=== PATIENT | female | born 1950 | race Caucasian/White ===

== ENCOUNTER → 2016-09-24 | Outpatient (CLI) | payer BC | END | disposition home or self-care (01) | LOC: LABWHC1 08:20 | PROVIDERS: ATTEND Physician Assistant Medical | DX: E87.6 Hypokalemia (principal) | CPT/HCPCS: 36415; 84132 ==

== ENCOUNTER → 2018-02-22 | Outpatient (CLI) | payer MEDICARE, BC ==
[2018-02-22 09:15] VITALS: BP 167/87; PULSE 71; TEMP 96.8; BMI 32.3
--- NOTE | 2018-02-22 09:51 | P.HPOB ---
History of Present Illness H&P Date: 02/22/18 Chief Complaint: The patient is here for her routine gynecologic exam and mammogram. This is a 67-year-old with an LMP of 1983. The patient status post vaginal hysterectomy and later BSO for benign reasons. The patient is without gynecologic complaints. She has been seen for mixed urinary incontinence by Dr. Ortiz, the urologist. She states he is planning on doing a sling procedure in the near future. Review of Systems She is gained 5 pounds over the last year. She denies respiratory, cardiac and G.I. problems. She denies maltreatment or problems with falling. : she has been having problems with stress and urge incontinence. She is seeing Dr. Ortiz for this. Past Medical History Past Medical History: GERD/Reflux, Hypertension, Thyroid Disorder (Hypothyroid) Additional Past Medical History / Comment(s): Seasonal allergies, osteopenia and chronic back problems with degenerative disc disease. 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 She is status post vaginal hysterectomy and later BSO for benign reasons. History of Any Multi-Drug Resistant Organisms: None Reported Past Surgical History: Breast Surgery (Left breast biopsy), Cholecystectomy, Hysterectomy (Vaginal hysterectomy 1979 and BSO 2005), Orthopedic Surgery ( Elbow surgery) Additional Past Surgical History / Comment(s): HIATAL HERNIA REPAIR, KIDNEY SURGERY,CERVICAL FUSION,RIGHT ELBOW. Colonoscopy 2010. Past Anesthesia/Blood Transfusion Reactions: No Reported Reaction Past Psychological History: No Psychological Hx Reported Smoking Status: Former smoker (Quick age 29) Past Alcohol Use History: Occasional (0 to 3 per week.) Additional Past Alcohol Use History / Comment(s): STARTED SMOKING AT AGE 15 QUIT IN 1984 SMOKED 1PPD Past Drug Use History: None Reported Additional History: She has been since 1999 and is retired. - Past Family History Sister(s) Family Medical History: Deep Vein Thrombosis (DVT) Additional Family Medical History / Comment(s): Peripheral vascular disease. Daughter(s) Family Medical History: Cancer (Lung cancer) Additional Family Medical History / Comment(s): LUNG CANCER Father Family Medical History: Cancer (Renal cancer) Additional Family Medical History / Comment(s): KIDNEY CANCER Brother(s) Family Medical History: Diabetes Mellitus Medications and Allergies Home Medications Medication Instructions Recorded Confirmed Type Esomeprazole Magnesium 40 mg PO DAILY 12/03/15 02/22/18 History Hydrochlorothiazide [Hydrodiuril] 25 mg PO DAILY 12/03/15 02/22/18 History Levothyroxine Sodium [Synthroid] 112 mcg PO DAILY 12/03/15 02/22/18 History Cyclobenzaprine [Flexeril] 10 mg PO PRN 02/22/18 History Fesoterodine Fumarate [Toviaz] 4 mg PO DAILY 02/22/18 02/22/18 History Ranitidine HCl [Zantac] 150 mg PO HS 02/22/18 02/22/18 History Allergies Allergy/AdvReac Type Severity Reaction Status Date / Time Iodine and Iodide Containing Allergy Rash/Hives Verified 02/22/18 09:09 Produc Exam Vital Signs Temp Pulse BP 02/22/18 09:09 96.8 F L 71 167/87 Intake and Output 02/21/18 02/22/18 02/22/18 22:59 06:59 14:59 Other: Weight 80.286 kg Height 5'2", weight 177 pounds, BMI 32.4. This is a well-developed well-nourished white female who is alert and oriented times 3 in no acute distress. HEENT: Within normal limits. NECK: Supple without mass or thyromegaly. CHEST AND LUNGS: Clear to auscultation. HEART: Regular rate and rhythm. BREASTS: Are without mass or discharge. There is central nipple inversion on the right side which she has had for several years. The left nipple is not inverted. AXILLARY EXAM: Negative for adenopathy. BACK: Negative for CVA tenderness. ABDOMEN: Soft, nontender, without palpable masses. PELVIC EXAM: External genitalia appears normal with mild atrophy. Vagina appears normal with mild atrophy. There is no evidence of prolapse. There is mild urethral mobility with cough and Valsalva. No urinary leakage was demonstrated. Bimanual examination is negative for mass or tenderness. RECTAL EXAM: Rectovaginal exam is negative for mass or tenderness and is negative for occult blood. EXTREMITIES: Nontender. IMPRESSION: 1. 67-year-old menopausal female status post vaginal hysterectomy and later BSO done for benign reasons, with normal gynecologic exam. 2. History of osteopenia. 3. Mixed urinary incontinence with mild urethral mobility. The patient states she is scheduled for a sling procedure by Dr. Ortiz. PLAN: 1. Pap smears have been discontinued. 2. Self breast awareness was discussed with the patient. 3. Screening mammogram will be done today. 4. Osteoporosis prevention was discussed. She will do a bone density test today. 5. She did receive a flu shot this fall. 6. She is scheduled for colonoscopy on 03/07/2018. 7. She will return in one year.
--- NOTE | 2018-02-23 10:12 | MM ---
Reason for exam: screening (asymptomatic). Last mammogram was performed 1 year ago. History: Patient is postmenopausal. 2 benign excisional biopsies of the left breast. Took estrogen for 1 year 2 months. Physical Findings: A clinical breast exam by your physician is recommended on an annual basis and results should be correlated with mammographic findings. MG 3D Screening Mammo W/Cad Bilateral CC and MLO view(s) were taken. Prior study comparison: February 08, 2017, bilateral MG 3d screening mammo w/cad. December 16, 2015, bilateral MG screening mammo w CAD. The breast tissue is heterogeneously dense. This may lower the sensitivity of mammography. There are benign appearing round vascular calcifications bilaterally. There is chronic nodularity in the left breast. Asymmetric breast tissue in the left breast is stable. There is no discrete abnormality. ASSESSMENT: Benign, BI-RAD 2 RECOMMENDATION: Routine screening mammogram of both breasts in 1 year.
--- NOTE | 2018-02-27 12:18 | BD ---
EXAMINATION TYPE: Axial Bone Density DATE OF EXAM: 02/22/2018 COMPARISON: Prior exam 02/18/2016 CLINICAL HISTORY: Postmenopausal without hormonal replacement therapy, Z 78.0 Height: 62 Weight: 175.1 FRAX RISK QUESTIONS: Alcohol (3 or more units per day): no Family History (Parent hip fracture): no Glucocorticoids (More than 3mos): no (Ex: prednisone, prednisolone, methylprednisolone, dexamethasone, and hydrocortisone). History of Fracture in Adulthood: Secondary Osteoporosis: 1. Type 1 Diabetes: no 2. Hyperthyroidism: no 3. Menopause before 45: no 4. Malnutrition: no 5. Chronic liver disease: no Rheumatoid Arthritis: no Current Tobacco Use: no RISK FACTORS HISTORY OF: Active: yes Diet low in dairy products/other sources of calcium: no Postmenopausal woman: age 50 Lost more than 2 inches in height since high school: no MEDICATIONS: hydrochlorothiazide, zantac, trozata Thyroid Medications: levothyroxine Additional History: EXAM MEASUREMENTS: Bone mineral densitometry was performed using the [employer] System. Bone mineral density as measured about the Lumbar spine is: ----- L1-L4(G/cm2): 0.989 T Score Values are as follows: ----- L2: -1.7 ----- L3: -1.6 ----- L4: -1.3 ----- L1-L4: -1.6 Bone mineral density has: increased 4.3 % since study of: 02.18.2016 Bone mineral density about the R hip (g/cm2): 0.789 Bone mineral density about the L hip (g/cm2): 0.831 T Score values are as follows: -----R Neck: -1.8 -----L Neck: -1.5 -----R Total: -0.6 -----L Total: -0.8 Bone mineral density has: increased 0.1 % since study of: 02.18.2016 IMPRESSION: Osteopenia (T Score between -2.5 and -1). There is slightly increased risk of fracture and the patient may be considered for treatment. Re-Screen 2-5 years. NOTE: T-SCORE=SD OF THE YOUNG ADULT MEAN.
== END ==
LOC: WWCWWP 08:16
PROVIDERS: ATTEND Obstetrics & Gynecology
DX: Z12.31 Encounter for screening mammogram for malignant neoplasm of breast (principal); M85.80 Other specified disorders of bone density and structure, unspecified site; Z78.0 Asymptomatic menopausal state
CPT/HCPCS: 77063; 77067; 77080

== ENCOUNTER 2018-03-17 10:23 | Day surgery (SDC) | payer MEDICARE, BC ==
[2018-03-15 14:50] VITALS: BMI 31.8
[~2018-03-17 10:23] MED LIST: LACTATED RINGERS 1,000 ML IV SCH
[2018-03-17 10:42] VITALS: TEMP 97.8
[2018-03-17] MEDS ORDERED: LACTATED RINGERS 1,000 ML IV ONE (10:42)
[2018-03-17] MEDS ORDERED: LIDOCAINE 1% 20 ML VIAL (10MG/ML) FOR IV START INTRADERMA ONE (10:42)
[2018-03-17] MEDS ORDERED: PROPOFOL 10 MG/ML 20 ML VIAL IV ONE (12:07)
[2018-03-17] MEDS ORDERED: LIDOCAINE 1% INJ 10MG/ML (20 ML MDV) ONE (12:07)
--- NOTE | 2018-03-17 12:29 | P.PCN ---
Date of Procedure: 03/17/18 Procedure(s) Performed: BRIEF HISTORY: Patient is a 67-year-old pleasant white female, scheduled for an elective colonoscopy as a part of the [place] she of prior history of colon polyps. Last upper endoscopy was 5 years ago. PROCEDURE PERFORMED: Colonoscopy. PREOPERATIVE DIAGNOSIS: History of colon polyps. IV sedation per Anesthesia. PROCEDURE: After informed consent was obtained, the patient, was brought into the endoscopy unit. IV sedation was administered by Anesthesia under continuous monitoring. Digital rectal examination was normal. Initially the Olympus CF- 160 flexible video colonoscope was then inserted in the rectum, gradually advanced into the cecum without any difficulty. Careful examination was performed as the scope was gradually being withdrawn. Ileocecal valve and the appendiceal orifice were visualized and appeared normal. Prep was fair.. Mucosa of the cecum, ascending colon, transverse colon, descending colon, sigmoid colon, and rectum appeared normal. Sigmoid diverticulosis seen. Retroflexion was performed in the rectum and no lesions were seen. The patient tolerated the procedure well. IMPRESSION: Normal-appearing colon from rectum to cecum no evidence of colorectal neoplasia Scattered sigmoid diverticulosis . RECOMMENDATIONS: Findings of this examination were discussed with the patient as well as her family. She was advised to have a repeat surveillance colonoscopy in 5 years from now because of the prior history of colon polyps..
[2018-03-17 12:31] VITALS: RESP 16
[2018-03-17 12:51] VITALS: BP 157/81; PULSE 68
== END 2018-03-17 13:04 | disposition home or self-care (01) ==
LOC: ORWHC2ENDO 10:23
PROVIDERS: ATTEND Internal Medicine Gastroenterology
DX: Z12.11 Encounter for screening for malignant neoplasm of colon (principal); K57.30 Diverticulosis of large intestine without perforation or abscess without bleeding; Z86.010 Personal history of colon polyps; I10 Essential (primary) hypertension; E07.9 Disorder of thyroid, unspecified; K21.9 Gastro-esophageal reflux disease without esophagitis; Z79.899 Other long term (current) drug therapy; Z79.890 Hormone replacement therapy; Z91.09 Other allergy status, other than to drugs and biological substances
CPT/HCPCS: J2001; J2704; G0105; 45378

== ENCOUNTER → 2018-04-19 | Outpatient (CLI) | payer MEDICARE, BC ==
[2018-04-19 10:21] LABS: Basophils # (A) 0.1 k/uL (0-0.2); Basophils % (A) 1 %; Eosinophils # (A) 0.2 k/uL (0-0.7); Eosinophils % (A) 3 %; HCT 43.3 % (34.0-46.0); HGB 13.9 gm/dL (11.4-16.0); Lymphocytes # (A) 1.6 k/uL (1.0-4.8); Lymphocytes % (A) 22 %; MCH 29.2 pg (25.0-35.0); MCHC 32.1 g/dL (31.0-37.0); MCV 91.2 fL (80.0-100.0); Mean Platelet Volume 6.2; Monocytes # (A) 0.4 k/uL (0-1.0); Monocytes % (A) 6 %; Neutrophils # (A) 4.7 k/uL (1.3-7.7); Neutrophils % (A) 66 %; Platelet Count 213 k/uL (150-450); RBC 4.75 m/uL (3.80-5.40); RDW 13.9 % (11.5-15.5); WBC 7.2 k/uL (3.8-10.6)
[2018-04-19 10:23] LABS: Calcium 9.3 mg/dL (8.4-10.2); Potassium 3.8 mmol/L (3.5-5.1)
[2018-04-19 10:45] LABS: Appearance,Urine Clear (Clear); Bilirubin,Urine Negative (Negative); Blood,Urine Negative (Negative); Color,Urine Light Yellow; Glucose,Urine (UA) Negative (Negative); Ketones,Urine Negative (Negative); Leukocyte Esterase,Urine Negative (Negative); Nitrite,Urine Negative (Negative); Protein,Urine Negative (Negative); Specific Gravity,Urine 1.005 (1.001-1.035); Urobilinogen,Urine <2.0 mg/dL (<2.0)
== END | disposition home or self-care (01) ==
LOC: LABPAT 09:30
PROVIDERS: ATTEND Urology
DX: Z01.812 Encounter for preprocedural laboratory examination (principal); N39.3 Stress incontinence (female) (male); R35.0 Frequency of micturition
CPT/HCPCS: 80048; 81003; 85025; 87086

== ENCOUNTER 2018-04-26 05:35 | Day surgery (SDC) | payer MEDICARE, BC ==
[2018-04-20 12:47] VITALS: BMI 32.9
--- NOTE | 2018-04-25 18:39 | P.GSHP ---
History of Present Illness H&P Date: 04/25/18 The patiet is 67. SHe has mixed urinary incontinence with a prominent ekaterina component Her LPP were 85 cm h2o SHe wants repair. Anticholinergic have helped the urgency but the ekaterina remains SHe comes for a pvs with autologous fascia Alternatives and risks were discussed She comes for this procedure - Constitutional Constitutional: Denies chills, Denies fever - EENT Eyes: denies blurred vision, denies pain Ears, nose, mouth and throat: Denies headache, Denies sore throat - Cardiovascular Cardiovascular: Denies chest pain, Denies shortness of breath - Respiratory Respiratory: Denies cough, Denies 7 - Gastrointestinal Gastrointestinal: Denies abdominal pain, Denies diarrhea, Denies nausea, Denies vomiting - Genitourinary (Female) Genitourinary: Denies dysuria, Denies hematuria - Genitourinary (Male) Genitourinary: Denies dysuria, Denies hematuria - Musculoskeletal Musculoskeletal: Denies myalgias - Integumentary Integumentary: Denies pruritus, Denies rash - Neurological Neurological: Denies numbness, Denies weakness - Psychiatric Psychiatric: Denies anxiety, Denies depression - Endocrine Endocrine: Denies fatigue, Denies weight change Past Medical History Past Medical History: Fibromyalgia, GERD/Reflux, Musculoskeletal Disorder, Thyroid Disorder Additional Past Medical History / Comment(s): ankle swelling, herniated disc, urinary incontinence History of Any Multi-Drug Resistant Organisms: None Reported Past Surgical History: Cholecystectomy, Hysterectomy, Orthopedic Surgery Additional Past Surgical History / Comment(s): HIATAL HERNIA REPAIR, KIDNEY SURGERY,CERVICAL FUSION,RIGHT ELBOW, surgery for blocked ureter, epidural pain procedures Past Anesthesia/Blood Transfusion Reactions: No Reported Reaction Smoking Status: Former smoker - Past Family History Sister(s) Family Medical History: Deep Vein Thrombosis (DVT) Daughter(s) Family Medical History: Cancer Additional Family Medical History / Comment(s): LUNG CANCER Father Family Medical History: Cancer Additional Family Medical History / Comment(s): KIDNEY CANCER Medications and Allergies Home Medications Medication Instructions Recorded Confirmed Type Hydrochlorothiazide [Hydrodiuril] 25 mg PO DAILY 12/03/15 04/25/18 History Levothyroxine Sodium [Synthroid] 112 mcg PO DAILY 12/03/15 04/25/18 History Ranitidine HCl [Zantac] 150 mg PO HS 02/22/18 04/25/18 History Cetirizine HCl [Zyrtec] 10 mg PO DAILY 03/15/18 04/25/18 History Omeprazole 20 mg PO DAILY 04/25/18 04/25/18 History Allergies Allergy/AdvReac Type Severity Reaction Status Date / Time Iodine and Iodide Containing Allergy Rash/Hives Verified 04/20/18 11:21 Produc Surgical - Exam - General well developed, well nourished, no distress - Eyes PERRL - ENT no hearing loss - Neck no masses - Respiratory normal expansion, normal respiratory effort - Cardiovascular Rhythm: regular - Abdomen Abdomen: soft, non tender - Genitourinary positive urethral mobility, ekaterina normal external genitalia - Integumentary no rash, no growths - Neurologic normal coordination, normal sensation - Musculoskeletal normal gait, normal posture - Psychiatric oriented to time, oriented to person, oriented to place, speech is normal, memory intact Assessment and Plan Assessment: Impression: ekaterina Plan: PVS with cysto
[~2018-04-26 05:35] MED LIST changes: -LACTATED RINGERS 1,000 ML IV SCH; +ceFAZolin 1,000 MG in DEXTROSE/WATER 1 50ML.BAG IVPB ONE
[2018-04-26] MEDS ORDERED: LIDOCAINE 1% 20 ML VIAL (10MG/ML) FOR IV START INTRADERMA PRN (05:38)
[2018-04-26] MEDS ORDERED: MIDAZOLAM 2 MG/2 ML VIAL IV PRN (05:38)
[2018-04-26] MEDS ORDERED: ONDANSETRON 4 MG/2 ML VIAL IVP ONE ×2 (05:38→09:07)
[2018-04-26] MEDS ORDERED: SCOPOLAMINE 1.5MG/72HR PATCH TRANSDERM ONE (05:38)
[2018-04-26] MEDS ORDERED: LACTATED RINGERS 1,000 ML IV SCH (05:38)
[2018-04-26] MEDS ORDERED: DEXAMETHASONE SOD PHOSPHATE 10 MG/ML 1 ML VIAL IV ONE (05:38)
[2018-04-26] MEDS ORDERED: ACETAMINOPHEN TAB 500 MG TAB PO ONE (06:48)
[2018-04-26] MEDS ORDERED: MIDAZOLAM 2 MG/2 ML VIAL ONE (07:17)
[2018-04-26] MEDS ORDERED: fentaNYL (PF) 50 MCG/ML 2 ML AMP ONE (07:17)
[2018-04-26] MEDS ORDERED: LIDOCAINE 1% INJ 10MG/ML (20 ML MDV) ONE (07:17)
[2018-04-26] MEDS ORDERED: PROPOFOL 10 MG/ML 20 ML VIAL IV ONE (07:17)
[2018-04-26] MEDS ORDERED: GENTAMICIN 40 MG/ML 2 ML VIAL IRRIGATION ONE (07:39)
[2018-04-26] MEDS ORDERED: VASOPRESSIN 20 UNIT/ML 1 ML VIAL IM ONE (07:39)
[2018-04-26] MEDS ORDERED: BACITRACIN 500 UNIT/GM OINT 28.4 GM TUBE TOPICAL ONE (07:51)
[2018-04-26] MEDS ORDERED: ONDANSETRON 4 MG/2 ML VIAL IVP PRN (08:42)
[2018-04-26] MEDS ORDERED: KETOROLAC 30 MG/ML 1 ML VIAL IVP PRN (08:42)
[2018-04-26] MEDS ORDERED: DEXTROSE 5%-0.45% NACL 1,000 ML IV SCH (08:45)
--- NOTE | 2018-04-26 08:50 | P.OP ---
Date of Procedure: 04/26/18 Preoperative Diagnosis: stress urinary incontinence Postoperative Diagnosis: Same Procedure(s) Performed: Pubovaginal sling with cystoscopy Anesthesia: TUCKER Surgeon: Israel Ortiz Estimated Blood Loss (ml): 50 Pathology: none sent Condition: stable Disposition: PACU Indications for Procedure: The patient is 67. She has mixed urinary incontinence. Anticholinergics help the urgency distress persisted. She comes for a pubovaginal sling due to leak point pressures and desired no mesh. This and complications including infection bleeding pain retention and failure of the procedure to work as well as injure the adjacent organs explained and understood and accepted. Description of Procedure: The patient is brought to the operating suite. She's given general anesthesia. She's placed in lithotomy position. A sterile prep and drape was administered. A Holt catheters introduced sterilely. The labor sewn laterally with 2-0 silk. A Pfannenstiel incision is made. I dissect down to the rectus fascia. An ellipse of 2 x 8 cm rectus fascias obtained. A close rectus fascia with [address] a 2-0 Prolene stitches through each end of the fascial graft. I elevated the anterior vaginal mucosa off the submucosa with a mixture of 20 mg of Pitressin and 200 mL of saline. A 10 mL. Anterior vaginal mucosa was very scarred due to previous hysterectomy. Dissect lateral to the bladder neck bilaterally. I then passed the Stamey needles retropubically at the corners of the pubis into the vaginal space. I do not buttonhole the vagina. I then inspect the bladder and bladder neck and see no evidence of the Stamey needles and the bladder. I attached the Prolene stitches of the graft and bring the Stamey needle back suprapubically. I then laid the graft and the bladder neck. I secured with a 4-0 Vicryl. I then inspect the bladder with the cystoscope and watch the bladder neck elevate nicely upon pulling the Prolene stitches anteriorly. I then closed the vaginal mucosa with 2-0 Vicryl. I tied the Prolene stitches over the rectus fascia to one another such that one to 2 fingerbreadths can fit between the stitch and the fascia. I closed the subcutaneous tissue with 4-0 Vicryl and the skin with 4-0 Monocryl. Blood loss is approximately 50 mL. A vaginal packing is placed. The labial stitches are removed. The urine remains clear. The patient's awake and returned recovery room good condition. Blood loss is 50 mL.
[2018-04-26] MEDS: HYDROmorphone 0.5 MG/0.5 ML SYRINGE IVP PRN ×4 (09:01→09:29)
[2018-04-26] MEDS ORDERED: MEPERIDINE 50 MG/ML SYRINGE IVP ONE (09:50)
[2018-04-26] MEDS: PANTOPRAZOLE 40 MG TABLET PO SCH (12:00)
[2018-04-26] MEDS: LORATADINE 10 MG TAB PO SCH (12:02)
[2018-04-26] MEDS: HYDROCHLOROTHIAZIDE 25 MG TAB PO SCH (12:03)
[2018-04-26] MEDS: LEVOTHYROXINE 112 MCG TAB PO SCH (12:05)
[2018-04-26] MEDS: HYDROcodone/APAP 5-325MG 1 EACH TAB PO PRN ×3 (16:18→23:59)
[2018-04-26] MEDS ORDERED: FAMOTIDINE 20 MG TAB PO SCH (21:00)
[2018-04-27] MEDS: HYDROcodone/APAP 5-325MG 1 EACH TAB PO PRN (07:55)
[2018-04-27] MEDS: LEVOTHYROXINE 112 MCG TAB PO SCH (07:55)
[2018-04-27] MEDS: PANTOPRAZOLE 40 MG TABLET PO SCH (07:55)
[2018-04-27 08:21] VITALS: BP 128/60; PULSE 82; RESP 18; TEMP 98.3
[2018-04-27] MEDS: HYDROCHLOROTHIAZIDE 25 MG TAB PO SCH (09:32)
[2018-04-27] MEDS: LORATADINE 10 MG TAB PO SCH (09:32)
--- NOTE | 2018-04-27 12:19 | P.DS ---
Providers Attending physician: Israel Ortiz Primary care physician: [facility] Course: The patient was admitted 04/26/2018 for a pubovaginal sling with cystoscopy. She underwent this without difficulty. She did well overnight. The catheter is been removed. She is voiding without difficulty. Her control is adequate. She is having minimal discharge. Her pain is under control. Wound looks good. She'll be discharged home. Prescription is Mcalester 53 25 #14 one every 6 hours when necessary pain. She'll follow-up in the office in one week. Postoperative instructions been given. She is good. Patient Condition at Discharge: Good Plan - Discharge Summary Discharge Rx Participant: No New Discharge Prescriptions: New HYDROcodone/APAP 5-325MG [Mcalester 5-325] 1 tab PO Q4HR PRN #14 tab PRN Reason: Pain No Action Hydrochlorothiazide [Hydrodiuril] 25 mg PO DAILY Levothyroxine Sodium [Synthroid] 112 mcg PO DAILY Ranitidine HCl [Zantac] 150 mg PO HS Cetirizine HCl [Zyrtec] 10 mg PO DAILY Omeprazole 20 mg PO DAILY Discharge Medication List Hydrochlorothiazide [Hydrodiuril] 25 mg PO DAILY 12/03/15 [History] Levothyroxine Sodium [Synthroid] 112 mcg PO DAILY 12/03/15 [History] Ranitidine HCl [Zantac] 150 mg PO HS 02/22/18 [History] Cetirizine HCl [Zyrtec] 10 mg PO DAILY 03/15/18 [History] Omeprazole 20 mg PO DAILY 04/25/18 [History] HYDROcodone/APAP 5-325MG [Mcalester 5-325] 1 tab PO Q4HR PRN #14 tab 04/27/18 [Rx] Follow up Appointment(s)/Referral(s): Israel Ortiz MD [STAFF PHYSICIAN] - 1 Week Discharge Disposition: HOME SELF-CARE
== END 2018-04-27 13:32 | disposition home or self-care (01) ==
LOC: OR 05:35 → 4FBP 09:35 → OR 04-27 13:32
PROVIDERS: ATTEND Urology
DX: N39.46 Mixed incontinence (principal); K21.9 Gastro-esophageal reflux disease without esophagitis; M79.7 Fibromyalgia; E07.9 Disorder of thyroid, unspecified; Z87.891 Personal history of nicotine dependence; Z91.048 Other nonmedicinal substance allergy status; I10 Essential (primary) hypertension; M54.30 Sciatica, unspecified side; Z79.890 Hormone replacement therapy; Z79.899 Other long term (current) drug therapy; Z91.041 Radiographic dye allergy status
CPT/HCPCS: 57288; C1762

== ENCOUNTER → 2019-03-14 | Outpatient (CLI) | payer MEDICARE, BC ==
[2019-03-14 10:52] VITALS: BP 146/78; PULSE 62; RESP 18; TEMP 98.2
--- NOTE | 2019-03-14 11:36 | P.HPOB ---
History of Present Illness H&P Date: 03/14/19 Chief Complaint: The patient is here for her routine gynecologic exam and ma mmogram. This is a 68-year-old with an LMP of 1983. The patient is status post vaginal hysterectomy and later BSO for benign reasons. The patient had a bladder sling procedure done by Dr. Ortiz, her urologist, in April of this year. She states she has done much better with urinary leakage after the sling procedure and with Vesicare. She has been experiencing discomfort with sexual i ntercourse because of vaginal dryness. This started before her bladder sling procedure. She has been using estrogen cream but ran out 1 month ago. She can occasionally notice small amount of blood after sexual intercourse. Review of Systems She has lost a net of 25 pounds with a low carbohydrate diet during the past year. She denies respiratory, cardiac and G.I. problems. She denies maltreatment or problems with falling. : She can occasionally have a small amount of urinary leakage but has done much better following the bladder sling procedure and use of Vesicare.. Past Medical History Past Medical History: GERD/Reflux, Hypertension, Thyroid Disorder Additional Past Medical History / Comment(s): Hypothyroidism. Seasonal allergies, osteopenia and chronic back problems with degenerative disc disease. 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 History of Any Multi-Drug Resistant Organisms: None Reported Past Surgical History: Breast Surgery, Cholecystectomy, Hernia Repair, Hysterectomy, Orthopedic Surgery Additional Past Surgical History / Comment(s): HIATAL HERNIA REPAIR, KIDNEY SURGERY,CERVICAL FUSION,RIGHT ELBOW SX. Colonoscopy 2010. Vaginal hysterectomy 1983 and BSO in 2005. Left breast biopsy. Past Anesthesia/Blood Transfusion Reactions: No Reported Reaction Past Psychological History: No Psychological Hx Reported Smoking Status: Former smoker Past Alcohol Use History: Occasional (1-2 per week) Additional Past Alcohol Use History / Comment(s): STARTED SMOKING AT AGE 15 QUIT IN 1984 SMOKED 1PPD Past Drug Use History: None Reported Additional History: She has been since 1999 and is sexually active. She is retired. - Past Family History Sister(s) Family Medical History: Deep Vein Thrombosis (DVT) Additional Family Medical History / Comment(s): Peripheral vascular disease. Daughter(s) Family Medical History: Cancer Additional Family Medical History / Comment(s): LUNG CANCER Father Family Medical History: Cancer Additional Family Medical History / Comment(s): KIDNEY CANCER Brother(s) Family Medical History: Diabetes Mellitus Medications and Allergies Home Medications Medication Instructions Recorded Confirmed Type Hydrochlorothiazide [Hydrodiuril] 25 mg PO DAILY 12/03/15 03/14/19 History Levothyroxine Sodium [Synthroid] 112 mcg PO DAILY 12/03/15 03/14/19 History Cetirizine HCl [Zyrtec] 10 mg PO DAILY 03/15/18 03/14/19 History Omeprazole 20 mg PO DAILY 04/25/18 03/14/19 History Famotidine [Pepcid] 20 mg PO HS 03/14/19 03/14/19 History Solifenacin Succinate [Vesicare] 10 mg PO DAILY 03/14/19 03/14/19 History Allergies Allergy/AdvReac Type Severity Reaction Status Date / Time Iodine and Iodide Containing Allergy Rash/Hives Verified 03/14/19 10:47 Produc Exam Vital Signs Temp Pulse Resp BP Pulse Ox 03/14/19 10:49 98.2 F 62 18 146/78 97 Intake and Output 03/13/19 03/14/19 03/14/19 22:59 06:59 14:59 Other: Weight 68.946 kg Height 5 feet 2 inches, weight 152 pounds, BMI 27.8. This is a well-developed well-nourished white female who is alert and oriented times 3 in no acute distress. HEENT: Within normal limits. NECK: Supple without mass or thyromegaly. CHEST AND LUNGS: Clear to auscultation. HEART: Regular rate and rhythm. BREASTS: Are without mass or discharge. The right nipple is inverted and she states it is been this way for many years. AXILLARY EXAM: Negative for adenopathy. BACK: Negative for CVA tenderness. ABDOMEN: Soft, nontender, without palpable masses. PELVIC EXAM: External genitalia appears normal with moderate atrophy. Vagina appears normal with moderate atrophy. There is no evidence of prolapse. Bimanual examination is negative for mass or tenderness. RECTAL EXAM: Rectovaginal exam is negative for mass or tenderness and is negative for occult blood. EXTREMITIES: Nontender. IMPRESSION: 1. 68-year-old menopausal female status post vaginal hysterectomy and later BSO for benign reasons with normal gynecologic exam. 2. History of osteopenia. 3. Vaginal dryness and dyspareunia secondary to genital atrophy. PLAN: 1. Pap smears have been discontinued. 2. Self breast awareness was discussed with the patient. 3. The patient will restart Estrace vaginal cream 1-2 g intravaginally twice a week. The electronic prescription will be sent to [facility]. I have also recommended that she use a lubricant with sexual activity. I have given her the name of Astraglyde for a lubricant. 4. She did receive her flu shot this fall. 5. We will plan on repeating bone density testing in 1-2 years. This was most recently done on 02/22/2018. 6. The patient was advised to return in 1-2 years for her well woman examinati on.
--- NOTE | 2019-03-14 14:15 | MM ---
Reason for exam: screening (asymptomatic). Last mammogram was performed 1 year and 1 month ago. History: Patient is postmenopausal. 2 benign excisional biopsies of the left breast. Took estrogen for 1 year 2 months. Physical Findings: A clinical breast exam by your physician is recommended on an annual basis and results should be correlated with mammographic findings. MG 3D Screening Mammo W/Cad Bilateral CC and MLO view(s) were taken. Prior study comparison: February 22, 2018, bilateral MG 3d screening mammo w/cad. February 08, 2017, bilateral MG 3d screening mammo w/cad. The breast tissue is heterogeneously dense. This may lower the sensitivity of mammography. There is chronic nodularity in the left breast. Asymmetric breast tissue left upper outer quadrant posterior and right anterior, stable. There is no discrete abnormality. ASSESSMENT: Benign, BI-RAD 2 RECOMMENDATION: Routine screening mammogram of both breasts in 1 year.
== END ==
LOC: WWCWWP 10:27
PROVIDERS: ATTEND Obstetrics & Gynecology
DX: Z12.31 Encounter for screening mammogram for malignant neoplasm of breast (principal)
CPT/HCPCS: 77063; 77067

== ENCOUNTER 2019-05-30 06:27 | Inpatient (IN) | payer MEDICARE, BC ==
[2019-05-24 11:40] VITALS: BMI 28.3
[~2019-05-30 06:27] MED LIST changes: +BACITRACIN 50,000 UNIT, POLYMYXIN B 500,000 UNIT in SODIUM CHLORIDE 0.9% IRRIGATIO 1,00... IRRIGATION ONE; +DEXAMETHASONE SOD PHOSPHATE 10 MG/ML 1 ML VIAL IV ONE; +LIDOCAINE 1% 20 ML VIAL (10MG/ML) FOR IV START INTRADERMA PRN; +MIDAZOLAM 2 MG/2 ML VIAL IV PRN; +ONDANSETRON 4 MG/2 ML VIAL IVP ONE; -ceFAZolin 1,000 MG in DEXTROSE/WATER 1 50ML.BAG IVPB ONE; +fentaNYL (PF) 50 MCG/ML 2 ML AMP IVP PRN
[2019-05-30] MEDS: LACTATED RINGERS 1,000 ML IV SCH ×2 (07:10→23:36)
[2019-05-30] MEDS ORDERED: SUCCINYLCHOLINE CHLORIDE 100 MG/5 ML SYR IV ONE (07:30)
[2019-05-30] MEDS ORDERED: PROPOFOL 10 MG/ML 20 ML VIAL IV ONE (07:30)
[2019-05-30] MEDS ORDERED: HYDROmorphone (PF) 1 MG/ML ONE (07:30)
[2019-05-30] MEDS ORDERED: ePHEDrine SULFATE/0.9% NACL/PF 50 MG/5 ML SYRINGE IV ONE (07:30)
[2019-05-30] MEDS ORDERED: MIDAZOLAM 2 MG/2 ML VIAL ONE (07:30)
[2019-05-30] MEDS ORDERED: LIDOCAINE 1% INJ 10MG/ML (20 ML MDV) ONE (07:30)
[2019-05-30] MEDS ORDERED: fentaNYL (PF) 50 MCG/ML 2 ML AMP ONE (07:30)
[2019-05-30] MEDS ORDERED: WATER FOR INJECTION, STERILE 10 ML VIAL IV ONE (07:30)
[2019-05-30] MEDS ORDERED: GELATIN SPONGE,ABSORB (LARGE) 1 EACH SPONGE TOPICAL ONE (08:40)
[2019-05-30] MEDS ORDERED: BUPIVACAINE (PF) 0.5% 30 ML VIAL SQ ONE (08:48)
[2019-05-30] MEDS ORDERED: THROMBIN (BOVINE) 5,000 UNIT VIAL TOPICAL ONE (08:48)
[2019-05-30] MEDS ORDERED: LIDOCAINE 2%-EPI 1:100,000 20 ML VIAL SQ ONE ×2 (08:48)
[2019-05-30] MEDS ORDERED: LACTATED RINGERS 1,000 ML IV ONE (08:49)
--- NOTE | 2019-05-30 10:24 | XR ---
EXAM TYPE: LUMBAR SPINE X RAY SERIES COMPARISON: NONE HISTORY: Postsurgical change TECHNIQUE: 4 views are submitted. FINDINGS: Intraoperative images are limited due to resolution. Postsurgical changes noted. IMPRESSION: 1. Postsurgical changes
[2019-05-30] MEDS ORDERED: MAGNESIUM HYDROXIDE 2,400 MG/10 ML CUP PO PRN (10:41)
[2019-05-30] MEDS ORDERED: Acetaminophen-Codeine 300-30mg TAB PO PRN ×2 (10:45)
[2019-05-30] MEDS ORDERED: ESTROGENS, CONJUGATED 0.625 MG/GM VAGINAL CREAM 42.5 GM TUBE VAGINAL PRN (10:46)
[2019-05-30] MEDS ORDERED: FAMOTIDINE 20 MG TAB PO PRN (10:46)
[2019-05-30] MEDS ORDERED: LORATADINE 10 MG TAB PO PRN (10:46)
--- NOTE | 2019-05-30 10:54 | P.OP ---
Date of Procedure: 05/30/19 Preoperative Diagnosis: Spondylolisthesis L5-S1, spinal stenosis L5-S1, degenerative disc disease L5-S1, low back pain, or extremity radiculopathy Postoperative Diagnosis: Spondylolisthesis L5-S1, spinal stenosis L5-S1, degenerative disc disease L5-S1, low back pain, or extremity radiculopathy Anesthesia: GETA Pathology: none sent Condition: stable Disposition: PACU Description of Procedure: DESCRIPTION OF PROCEDURE(S): BRIEF OPERATIVE NOTE Preoperative Diagnosis: Spondylolisthesis L5-S1, spinal stenosis L5-S1, degenerative disc disease L5-S1, low back pain, or extremity radiculopathy Postoperative Diagnosis:Spondylolisthesis L5-S1, spinal stenosis L5-S1, degenerative disc disease L5-S1, low back pain, or extremity radiculopathy Procedure: Laminectomy and decompression L5-S1 Minimally invasive Posterior lateral decompression and facet fusion L5-S1 Minimally invasive Transforaminal lumbar interbody fusion for a 360 fusion L5-S1 Discectomy for decompression L5-S1 Use of computer navigation device for placement of a vehicle screws at L5 and S1 Placement of interbody graft L5-S1 Harvesting Iliac crest bone grafting Local autogenous bone grafting Harvesting of bone marrow aspirate from the pedicle and vertebral body of L5 on the right Use of Cell Saver Use of bone graft extenders Surgeon: Dr. Oakes Lead Caster: Ming Rivas is present throughout the entire the case persistence during positioning, dissection, exposure, visualization, and all crucial elements of the case as well as closure. Anesthesia: General anesthesia Estimated blood loss: Approximately 50 mL Complications: None apparent Components implanted: K2M noninvasive [place] pedicle screw system with 6.5 x 40 and 45 mm screws with 2 rods and 1 peek [place] 6 mm interbody cage Disposition: To recovery room in good stable condition. OPERATIVE INDICATIONS The patient has had long-standing issues in their lower back and lower extremities. She been having worsening of her symptoms of the past several months. She was having worsening radiculopathy and pain in her back which was becoming debilitating for her. Her activities were significantly be altered because of her back and lower extremity symptoms. The patient has been through conservative treatment. She is not having any prolonged benefit despite aggressive conservative treatment. She is found have significant disc d egeneration with spondylolisthesis and stenosis L5-S1 which correlated with her low back and lower extremity symptoms. We discussed various treatment options including surgery, and the patient wishes to proceed with surgery We discussed the risk, patient's alternatives and benefits of surgery including but not limited to, risk of bleeding risk of infection, risk of need for further surgery, risk of decreased, loss of motion, muscle function, malunion nonunion, hardware failure, nerve damage, paralysis, heart attack, blindness and . OPERATIVE SUMMARY After discussing all the risks, patient alternatives and benefits at length, the patient elected to proceed with surgical intervention, signed informed consent, and presented for their procedure. The patient was seen and examined in the preoperative holding area and the surgical site was marked. The patient was given antibiotics and brought to the operating room. The patient was sedated and intubated by anesthesia in standard fashion. The patient was positioned on to the operating room table in a prone position on the appropriate frame which was well-padded and well molded. We were careful to pad any bony prominences and pressure points. We were careful to maintain the patient's cervical spine and good neutral alignment and position throughout. The patient was prepped and draped in a normal standard fashion. An appropriate timeout and keystone protocol performed. We were able to proceed with the surgery. The local wound area was infiltrated with local anesthetic. I was able utilize the Lono computer navigation device as well as C-arm guidance to establish appropriate position over the pedicles bilaterally at the appropriate levels at L5-S1. With the appropriate levels confirmed was able to make small stab incisions over the appropriate pedicle sites bilaterally. Utilizing the computer navigation device as well as C-arm I was able to establish a Jamshidi needle over the lateral aspect of the pedicle and advanced the trocar into the pedicle being careful not to breech superiorly inferiorly medially or laterally. Position was confirmed regularly with the Lono computer navigation device as well as AP and lateral images on C-arm. I was able to establish the trocar into the pedicle appropriately into the posterior aspect of the vertebral body bilaterally at the appropriate levels. This was done at each of the pedicle positions and each of the vertebrae at L5-S1. At L5 on the right I also withdrew Viky 30 mL of bone marrow aspirate from the trocar in the vertebral body to supplement the old graft later in the case. I was able place the guidewire into the trocar and into the vertebral body appropriately under C-arm guidance. Dissection was taken down over the wire to the appropriate starting position for the screw placed. The appropriate length screw was chosen, threaded over the guidewire and screwed appropriately into the pedicle and vertebral body under C-arm guidance in excellent alignment and position with good bony purchase. This is done at each of the screw sites at the appropriate levels at L5 and S1. With the screws intact I extended the incision to connect the screw hole sites on the most symptomatic side on the right. I dissected down to establish access over the pars and lamina to the base of the spinous process. I was able to expose the facet joint. I had to do partial exposure of the left iliac crest nor skin access to the L5-S1 space appropriately. With some of the iliac crest exposed I had removed some of the bone and used it and harvested some of the bone graft for later use in the case. The capsule the facet was taken down and showed some facet arthrosis at the joint at L5-S1. I was able to use a combination of curettes and Kerrison rongeurs and a high-speed drill to take down the facet joint and do a facetectomy. Partial laminectomy was also performed. I was able get excellent foraminal decompression and central decompression with undermining across midline to perform a laminectomy centrally and contralaterally. As able get good central decompression. The ligamentum flavum was taken down to further decompress centrally and at bilateral neural foramen. I was able to expose the disc space and visualize the traversing nerve root. Note was made of some disc protrusion at the level causing further compression of the nerve root. I was able to establish a annulotomy at the appropriate level protecting soft tissue and neural structures. Note was made of some disc desiccation at the disc. I performed a complete discectomy with accommodation of curettes and rasps and scrapers. I was able get good endplate preparation at the disc space. The disc was severely collapsed and there was almost no disc space left at L5-S1. I was able to expand the disc and gain access. I sized for the appropriate size interbody spacer protecting the soft tissue and neural structures. The wound was copiously irrigated and suctioned dry. There is no evidence of any dural tear or leak. I was able to pack the disc space with local autogenous bone graft as well as a small amount of bone graft which was also placed into the interbody cage itself. Protecting the soft tissue structures and neural structures I was able place the interbody cage in good alignment and good position with good fit and fill at the interbody space at L5-S1. His issues was confirmed with C-arm guidance. Good hemostasis maintained. There is no evidence of any dural tear or leak. The wound was irrigated and suctioned dry. With the hardware intact, intraoperative C-arm imaging was again taken which showed good alignment and position of the hardware at the appropriate levels at L5-S1. We were then able to measure, contour and place the rods and appropriate hardware bilaterally. I was able to place capcrews, tighten them down, and torque them with the torque screwdriver appropriately. With this intact I was able to place the local autogenous bone graft with additional bone graft enhancer as necessary into the posterior lateral gutters over the decorticated transverse processes. The remainder of the bone graft was placed over the facet joint on the contralateral side after taking down the facet joint capsule. With the bone graft intact, a stable construct, and good decompression at the appropriate levels, we were able to proceed with closure. Good hemostasis was maintained. There is no evidence of dural tear or leak. The fascia was closed for a watertight closure. he subcuticular tissue was closed with absorbable sutu re. The wound was cleaned and dried and dressed with the appropriate dressing. The drapes were broken down. The patient was gently rolled back onto their hospital bed being careful to maintain their cervical spine and good neutral alignment and position. They were woken up by anesthesia, extubated, and brought to the recovery room in good stable condition. The patient will be admitted to the hospital for appropriate postoperative care, medical management and monitoring. We will continue to follow them closely about the postoperative course.
[2019-05-30] MEDS: HYDROmorphone 0.5 MG/0.5 ML SYRINGE IVP PRN ×6 (11:11→21:56)
[2019-05-30] MEDS: ONDANSETRON 4 MG/2 ML VIAL IVP PRN ×2 (12:56→17:57)
[2019-05-30] MEDS: SODIUM CHLORIDE 0.9% 1,000 ML IV SCH ×2 (13:58→23:36)
[2019-05-30] MEDS: PANTOPRAZOLE 40 MG/10 ML VIAL IVP SCH ×2 (15:53→19:33)
--- NOTE | 2019-05-30 16:00 | FL ---
EXAMINATION TYPE: FL guidance operating room DATE OF EXAM: 05/30/2019 HISTORY: Fluoroscopy time 23 seconds of fluoroscopy provided. IMPRESSION: 1. Fluoroscopy time.
[2019-05-30] MEDS: CALCIUM CARBONATE 500 MG CHEWABLE PO PRN (16:37)
[2019-05-30] MEDS ORDERED: METOCLOPRAMIDE 5 MG/ML 2 ML VIAL IVP STA (19:18)
--- NOTE | 2019-05-30 20:38 | CONS ---
CONSULTATION DATE OF SERVICE: 05/30/2019 REASON FOR CONSULTATION: Hypertension requested by Dr. Oakes. HISTORY OF PRESENT ILLNESS: This 68-year-old woman with a past medical history of GERD, hypertension, history of hypothyroidism, bladder surgery, cholecystomy being followed by Dr. Mcintosh in the outpatient setting underwent laminectomy decompression L5-S1 by Dr. Oakes. The patient complains of severe pain. Patient also complains of some postoperative nausea and vomiting also. No chest pain. No palpitations. No fever. PAST MEDICAL HISTORY: History of GERD, hypertension, history hypothyroidism, migraine, seasonal allergies, osteoporosis, chronic back and neck pain. MEDICATIONS: Home medications are: 1. VESIcare 10 mg p.o. daily. 2. Omeprazole 40 mg p.o. daily. 3. Multivitamins 1 p.o. daily. 4. Levothyroxine 112 mcg p.o. daily. 5. HydroDIURIL 25 mg p.o. daily. 6. Pepcid 20 mg q.h.s. p.r.n. 7. Estrogens daily p.r.n. 9. Tylenol 1000 mg b.i.d. p.r.n. ALLERGIES: NORCO AND IODINATED CONTRAST DYES. FAMILY HISTORY: History of DVT in the family. SOCIAL HISTORY: Previous history of smoking. Occasional alcohol. REVIEW OF SYSTEMS: ENT: No diminished vision. No diminished hearing. CARDIOVASCULAR: No angina or palpitations. RESPIRATIONS: No cough. No hemoptysis. GI as mentioned earlier. no dysuria. NERVOUS SYSTEM: As mentioned earlier. ALLERGY/IMMUNOLOGY: No asthma or hayfever. MUSCULOSKELETAL as mentioned earlier. HEMATOLOGY/ONCOLOGY: No history of anemia. ENDOCRINE: Hypothyroidism. CONSTITUTIONAL: As mentioned earlier. DERMATOLOGY: Negative. RHEUMATOLOGY: Negative. PSYCHIATRY: As mentioned earlier. PHYSICAL EXAMINATION: Alert and oriented times three. Pulse 78, blood pressure 128/72, respirations 16, temperature 97.7, pulse ox 97% on room air. HEENT: Conjunctivae normal. NECK: No JVD. CARDIOVASCULAR: S1, S2 muffled. RESPIRATION: Breath sounds diminished in the bases. No rhonchi. No crackles. ABDOMEN: Soft, nontender. No mass palpable. LEGS: No edema. No swelling. NERVOUS SYSTEM: Higher functions as mentioned earlier. No focal motor or sensory deficits. LYMPHATICS: No lymph nodes palpable in the neck, axillae or groin. SKIN: No ulcer, rash or bleeding. JOINTS: No active deforming arthropathy. Examination of the back status post surgery. LABS: The preoperative labs are hematology is within normal limits and coags are within normal limits. BMP showed CO2 of 33, otherwise glucose was 61. ASSESSMENT: 1. Status post lumbar laminectomy and decompression L5-S1. 2. Postoperative vomiting. 3. Hypertension. 4. Hypothyroidism. 5. Gastroesophageal reflux disease. 6. History of migraines. 7. History of seasonal allergies. 8. Osteopenia. 9. History of ulcer. 10.History of hiatal hernia. 11.History of irritable bowel syndrome. 12.History of hernia repair. 13.History of tonsillectomy. 14.History of nicotine dependence. 15.FULL CODE. RECOMMENDATIONS AND DISCUSSION: In this 68-year-old woman who presented after surgery, at this time, I recommend to continue current medications, management and symptomatic treatment. I recommend proton pump IV infusion. Otherwise, avoid NSAIDs. Symptomatic treatment. DVT prophylaxis. Incentive spirometry. We will follow the patient closely with you. The patient may be asked to follow up with Dr. Mcintosh closely after discharge. Thank you Dr. Oakes, for letting us participate in the care of this patient. MMODL / IJN: [id number] / JACK
[2019-05-31] MEDS: HYDROmorphone 1 MG/ML 1 ML SYRINGE IVP PRN ×5 (01:51→23:23)
[2019-05-31] MEDS: ONDANSETRON 4 MG/2 ML VIAL IVP PRN ×2 (01:56→08:22)
[2019-05-31] MEDS: BENZOCAINE/MENTHOL LOZENG 1 EACH LOZENGE MUCOUS MEM PRN ×2 (05:42→19:55)
[2019-05-31] MEDS: LEVOTHYROXINE 112 MCG TAB PO SCH (05:43)
[2019-05-31] MEDS: CALCIUM CARBONATE 500 MG CHEWABLE PO PRN (05:48)
[2019-05-31] MEDS: MULTIVITAMINS, THERA 1 EACH TAB PO SCH (07:21)
[2019-05-31] MEDS: HYDROCHLOROTHIAZIDE 25 MG TAB PO SCH (07:21)
[2019-05-31] MEDS: SENNOSIDES-DOCUSATE SODIUM 1 EACH TAB PO SCH (07:21)
[2019-05-31] MEDS: PANTOPRAZOLE 40 MG/10 ML VIAL IVP SCH (07:22)
[2019-05-31] MEDS: TROSPIUM CHLORIDE 20 MG TABLET PO SCH ×2 (07:22→21:16)
[2019-05-31] MEDS ORDERED: PANTOPRAZOLE 40 MG TABLET PO SCH (07:30)
[2019-05-31 08:40] LABS: Basophils % (A) 0 %; Eosinophils # (A) 0.1 k/uL (0-0.7); Eosinophils % (A) 1 %; HCT 38.7 % (34.0-46.0); HGB 12.9 gm/dL (11.4-16.0); Lymphocytes # (A) 0.7 k/uL (1.0-4.8); Lymphocytes % (A) 9 %; MCH 31.3 pg (25.0-35.0); MCHC 33.4 g/dL (31.0-37.0); MCV 93.8 fL (80.0-100.0); Mean Platelet Volume 7.8; Monocytes # (A) 0.7 k/uL (0-1.0); Monocytes % (A) 8 %; Neutrophils # (A) 6.7 k/uL (1.3-7.7); Neutrophils % (A) 80 %; Platelet Count 160 k/uL (150-450); RBC 4.12 m/uL (3.80-5.40); RDW 12.9 % (11.5-15.5); WBC 8.4 k/uL (3.8-10.6)
[2019-05-31 08:48] LABS: African American GFR (CKD) >90 (>60 ml/min/1.73 sqM); Anion Gap 6 mmol/L; Blood Urea Nitrogen 10 mg/dL (7-17); Calcium 8.3 mg/dL (8.4-10.2); Carbon Dioxide 28 mmol/L (22-30); Chloride 104 mmol/L (98-107); Glucose 133 mg/dL (74-99); Non-African American GFR(CKD) >90 (>60 ml/min/1.73 sqM); Potassium 3.9 mmol/L (3.5-5.1); Sodium 138 mmol/L (137-145)
[2019-05-31] MEDS: traMADol 50 MG TAB PO PRN ×2 (09:13→18:20)
--- NOTE | 2019-05-31 09:53 | P.PN ---
Progress Note - Text Progress Note Date: 05/31/19 Postoperative day #1 Patient is seen and examined today at bedside. The patient is having very difficult time this morning with her right lower extremity in terms of her pain. She has severe pain at her gluteus and the back of her right thigh. She is not having weakness in her right leg. She feels strong in her leg but the pain is significant. The patient has some pain around the surgical site as expected. Thus far pain has not been well controlled with her medication. She is not able to take regular narcotics orally due to ALLERGIES. She has only had Ultram thus far. She had some nausea. She has been able to get up out of bed. Her Holt still intact. Physical Exam Afebrile with stable vital signs Abdomen is soft nontender. Chest has good excursion deep and space expiration The incision site is clean dry and intact. No erythema there is no purulence. The dressing is clear with no significant drainage. There is no CSF and swelling. Extremities have not had neurologic change from prior to surgery. She has 5-5 strength the dorsal flexion plantar flexion and EHL bilaterally. She is actually able stand up on her toes bilaterally. Calves and thighs were soft nontender without evidence of DVT. Assessment/Plan Postoperative day #1 status post minimally invasive decompression fusion L5-S1 for her spinal listhesis with spinal stenosis lower extremity radiculopathy Patient is having some difficulty with her pain control from the surgery particularly at her right leg this morning, . she still has good strength in her leg without any neurologic deficit. I would like to see how she does with further medication. It is somewhat difficult to control her pain with her ALLERGIES to certain narcotics. I will go ahead and give her some Toradol to see if that helps alleviate some of the inflammation around the nerve and an off we will settle down some of the pain. We will also try Flexeril and potentially Neurontin if necessary. We will continue to increase the patient's mobilization with therapy. We will continue pain control as stated above with oral or IV medications. We'll continue to follow patient closely.
[2019-05-31] MEDS: DIAZEPAM 2 MG TAB PO PRN (10:05)
[2019-05-31] MEDS: KETOROLAC 30 MG/ML 1 ML VIAL IVP PRN ×2 (10:05→15:00)
[2019-05-31] MEDS: SODIUM CHLORIDE 0.9% 1,000 ML IV SCH (12:32)
[2019-05-31] MEDS: GABAPENTIN 100 MG CAP PO PRN (12:32)
[2019-05-31] MEDS: CYCLOBENZAPRINE 10 MG TAB PO PRN (18:23)
[2019-05-31] MEDS: ACETAMINOPHEN TAB 500 MG TAB PO PRN (19:54)
[2019-05-31] MEDS: PANTOPRAZOLE 40 MG TABLET PO SCH (21:16)
--- NOTE | 2019-05-31 23:37 | PN ---
PROGRESS NOTE DATE OF SERVICE: 05/31/2019 This 68-year-old woman who was admitted after back surgery is being closely monitored. Patient is feeling slightly better. No chest pain. No palpitations. No fever. EXAM: Alert and oriented times three. Pulse 83. Blood pressure 118/60, respirations 14, temperature 98.2, pulse ox 94% on room air. HEENT is conjunctivae normal. NECK: No JVD. CARDIOVASCULAR: S1, S2 muffled. RESPIRATION: Breath sounds diminished in the bases. A few scattered rhonchi and crackles. ABDOMEN is soft, nontender. NERVOUS SYSTEM: No focal deficits. Examination of the back status post surgery. CBC and BMP noted. ASSESSMENT: 1. Status post lumbar laminectomy and decompression L5-S1. 2. Postoperative vomiting as expected. 3. Hypertension. 4. Hypothyroidism. 5. History of gastroesophageal reflux disease. 6. History of migraine. 7. History of seasonal allergies. 8. Osteopenia. 9. History of ulcer. 10.History of hiatal hernia. 11.History of irritable bowel syndrome. 12.History of hernia repair. 13.History of tonsillectomy. 14.History of nicotine dependence. 15.FULL CODE. RECOMMENDATIONS AND DISCUSSION: I recommend to continue current medications, symptomatic treatment. Otherwise, pain medications. DVT prophylaxis. The rest of the recommendations per Dr. Oakes. Further recommendations to follow. MMODL / IJN: [id number] /
[2019-06-01] MEDS: LACTATED RINGERS 1,000 ML IV SCH (02:29)
[2019-06-01] MEDS: SODIUM CHLORIDE 0.9% 1,000 ML IV SCH ×2 (04:03→17:32)
[2019-06-01] MEDS: CYCLOBENZAPRINE 10 MG TAB PO PRN ×3 (04:10→22:15)
[2019-06-01] MEDS: traMADol 50 MG TAB PO PRN ×3 (04:11→23:46)
[2019-06-01] MEDS: LEVOTHYROXINE 112 MCG TAB PO SCH (05:41)
[2019-06-01] MEDS: ACETAMINOPHEN TAB 500 MG TAB PO PRN (07:17)
[2019-06-01] MEDS: TROSPIUM CHLORIDE 20 MG TABLET PO SCH ×2 (07:18→19:47)
[2019-06-01] MEDS: HYDROCHLOROTHIAZIDE 25 MG TAB PO SCH (07:18)
[2019-06-01] MEDS: SENNOSIDES-DOCUSATE SODIUM 1 EACH TAB PO SCH (07:18)
[2019-06-01] MEDS: PANTOPRAZOLE 40 MG TABLET PO SCH ×2 (07:18→19:46)
[2019-06-01] MEDS: MULTIVITAMINS, THERA 1 EACH TAB PO SCH (07:18)
[2019-06-01] MEDS: KETOROLAC 30 MG/ML 1 ML VIAL IVP PRN ×2 (10:09→18:15)
--- NOTE | 2019-06-01 13:05 | P.PN ---
Progress Note - Text Progress Note Date: 06/01/19 Orthopedic Spine: History of present illness: Patient is a pleasant 68-year-old female who is seen and examined at the bedside following posterior lateral decompression and fusion performed Tuesday. Yesterday she was having significant difficulty with pain control. She was experiencing severe pain towards the right buttock and down the posterior thigh. Patient has difficulty with narcotic pain medications due to ALLERGIES. She is given a dose of Toradol yesterday. She has been taking Ultram, Valium, cyclobenzaprine, Neurontin, and Toradol for control of her symptoms. She feels significantly better today as compared yesterday. She has some pain in the right buttock and right posterior thigh but is significantly better controlled. She continues to have some pain at the surgical sites as well. She has been able to ambulate the hallways. She is hoping she is able to continue to improving so she can be discharged home hopefully tomorrow, 06/02/2019. She is eating and voiding without difficulty. Currently does not complain of nausea, vomiting, fever, or chills. Patient states pain has been adequately controlled. Physical Exam Lumbar Fusion: Status post surgical day number 2 Patient is awake, alert, and oriented 3 Vital signs stable Good chest excursion with deep inspiration and expiration Abdomen soft nontender Dorsiflexion, plantarflexion, and extensor hallucis longus positive sustained bilaterally Patient is able to move legs independently in bed without any significant difficulty No signs or symptoms of DVT; no calf pain; pneumatic cuffs not currently intact bilateral lower extremities Dressings remain clean, dry, and intact; no erythema, purulence, or signs of infection Evidence of some bruising around the surgical sites No significant pain with palpation around the surgical sites Neurovascularly intact bilaterally lower extremities Assessment: Status post L5-S1 minimally invasive posterior lateral decompression and fusion with transforaminal lumbar interbody fusion Low back pain Right lower extremity radiculopathy L5-S1 spondylolisthesis L5-S1 degenerative disc disease Lumbosacral spinal stenosis Hypothyroidism Plan: 1. Ambulate as tolerated; work with Physical Therapy to increase mobilization 2. Continue pain control with IV and oral medications; patient does have difficulty with narcotic pain medications due to ALLERGY. Her symptoms have been well-controlled with a variety of medications including Ultram, Flexeril, Valium, gabapentin, and Toradol. We will continue weaning the patient off of IV medications. We discussed we will plan to prescribe Ultram, Flexeril, and gabapentin at the time of discharge. She has been taking these medications during her admission to the hospital without difficulty. MAPS has been reviewed today, 06/01/2019, with an Overall Overdose Risk Score of 160. An "Opiod Start Talking" Form has been signed and placed in the patient's chart. A prescription has been written for Ultram 50 mg 1-2 tabs every 6 hours as needed for pain, dispensed #56. A prescription has been written for Flexeril 10 mg 1 tab every 8 hours as needed for muscle spasm, dispensed #60. A prescription has been written for gabapentin 100 mg 1 tab every 8 hours as needed for radiculopathy, dispensed #21. These medications have been prescribed and will be transferred to the [facility] pharmacy here at [facility]. We discussed patient should avoid anti-inflammatories over the next 6 weeks postoperatively. 3. Dressing to remain intact with silver and Tegaderm 4. Medical management can continue to manage patient for patient's other medical diagnoses 5. We will continue to follow the patient closely; if the patient is able to continue to improve, we will plan for discharge home tomorrow, 06/02/2019 6. Patient can follow-up with Ming Machado PA-C or Dr. Stan Oakes at [facility] in 2-3 weeks following discharge
[2019-06-01] MEDS: HYDROmorphone 1 MG/ML 1 ML SYRINGE IVP PRN ×2 (17:31→22:15)
--- NOTE | 2019-06-01 19:29 | PN ---
PROGRESS NOTE DATE OF SERVICE: 06/01/2019 This 68-year-old woman who was admitted after lumbar laminectomy and decompression also had some postoperative vomiting, as expected, but currently the patient is improving significantly. Orthopedics is following the patient. No chest pain. No palpitations. No fever. PHYSICAL EXAMINATION: Alert and oriented x3. Pulse is 78, blood pressure 104/60, respiration 12, temperature 98 degrees, pulse ox 96% on room air. HEENT: Conjunctivae normal. NECK: No jugular venous distention. CARDIOVASCULAR SYSTEM: S1, S2 muffled. RESPIRATORY SYSTEM: Breath sounds diminished at the bases. A few scattered rhonchi and crackles. ABDOMEN: Soft, non-tender. LEGS: No edema. No swelling. NERVOUS SYSTEM: No focal deficit. EXAMINATION OF THE BACK: Status post surgery. LABS: CBC and BMP noted. ASSESSMENT: 1. Status post lumbar laminectomy and decompression at L5-S1. 2. Postoperative vomiting, as expected. 3. Hypertension. 4. Hypothyroidism. 5. History of gastroesophageal reflux disease. 6. History of migraines. 7. Seasonal allergies. 8. Osteopenia. 9. History of ulcer. 10.History of hiatal hernia. 11.History of irritable bowel syndrome. 12.History of hernia repair. 13.History of tonsillectomy. 14.History of nicotine dependence. 15.FULL CODE. RECOMMENDATIONS AND DISCUSSION: I recommend to continue current medications, continue with the monitoring, symptomatic treatment. Otherwise, at this time I would recommend incentive spirometry, DVT prophylaxis. Further recommendations to follow. MMJEAN PIERREL / NEVAEHN: [id number] /
[2019-06-02] MEDS: GABAPENTIN 100 MG CAP PO PRN ×2 (02:46→05:55)
[2019-06-02] MEDS: ACETAMINOPHEN TAB 500 MG TAB PO PRN (02:52)
[2019-06-02] MEDS: CYCLOBENZAPRINE 10 MG TAB PO PRN (04:29)
[2019-06-02] MEDS: traMADol 50 MG TAB PO PRN ×2 (04:29→09:38)
[2019-06-02] MEDS: LEVOTHYROXINE 112 MCG TAB PO SCH (04:30)
[2019-06-02] MEDS: MULTIVITAMINS, THERA 1 EACH TAB PO SCH (05:55)
[2019-06-02] MEDS: PANTOPRAZOLE 40 MG TABLET PO SCH (05:55)
[2019-06-02] MEDS: HYDROCHLOROTHIAZIDE 25 MG TAB PO SCH (05:55)
[2019-06-02] MEDS: SODIUM CHLORIDE 0.9% 1,000 ML IV SCH (05:55)
[2019-06-02] MEDS: SENNOSIDES-DOCUSATE SODIUM 1 EACH TAB PO SCH (05:56)
[2019-06-02] MEDS: LACTATED RINGERS 1,000 ML IV SCH (06:14)
[2019-06-02] MEDS: TROSPIUM CHLORIDE 20 MG TABLET PO SCH (06:14)
[2019-06-02 09:11] VITALS: BP 131/70; PULSE 87; RESP 17; TEMP 98.2
[2019-06-02] MEDS: DIAZEPAM 2 MG TAB PO PRN (09:38)
--- NOTE | 2019-06-02 09:48 | P.DS ---
Providers Date of admission: 05/30/19 06:27 Expected date of discharge: 06/02/19 Attending physician: Dawson Oakes Consults: 05/30/19 10:41 Consult Physician Routine Consulting Provider: Kaylee Guzman Consult Reason/Comments: Medical management Do you want consulting provider notified?: Yes Primary care physician: Emmanuelle Mcintosh - Discharge Diagnosis(es) (1) Lumbar back pain with radiculopathy affecting right lower extremity Current Visit: Yes Status: Acute (2) Degenerative disc disease at L5-S1 level Current Visit: Yes Status: Acute (3) Hypothyroidism Current Visit: Yes Status: Acute (4) Spondylolisthesis at L5-S1 level Current Visit: Yes Status: Acute Hospital Course: The patient is a 68 -year-old female who is status post L5 to S1 minimally invasive posterior lateral decompression with transforaminal lumbar interbody fusion on 05/30/[address] Oakes. Patient has known history of low back pain and presented to discuss options. After discussion and consideration, patient elected to proceed with surgery. The patient was seen preoperatively and medically cleared for surgery by her primary care physician. The procedure was performed without complications or sequelae. The patient was seen and evaluated at bedside today and denies any new complaints. Pain is reasonably controlled. Dressing is clean dry and intact. Her abdomen is soft and nontender. Dorsiflexion, plantarflexion, extensor hallucis longus positive sustaining bilaterally. Calves are soft and nontender. The patient has full foot and ankle motion without difficulty. Patient's bilateral lower extremities are neurovascular intact. Patient is orthopedically stable for discharge to home today. Pertinent Studies: Laboratory Tests 05/31/19 05/31/19 07:56 07:56 WBC 8.4 RBC 4.12 Hgb 12.9 Hct 38.7 Lymphocytes # 0.7 L Glucose 133 H Calcium 8.3 L Patient Condition at Discharge: Stable Plan - Discharge Summary Discharge Rx Participant: Yes New Discharge Prescriptions: New Cyclobenzaprine [Flexeril] 10 mg PO TID PRN #60 tab PRN Reason: Muscle Spasm Gabapentin [Neurontin] 100 mg PO TID PRN #21 cap PRN Reason: Pain traMADol HCl [Ultram] 50 mg PO Q6H PRN #56 tab PRN Reason: Pain No Action Hydrochlorothiazide [Hydrodiuril] 25 mg PO DAILY Levothyroxine Sodium [Synthroid] 112 mcg PO DAILY Cetirizine HCl [Zyrtec] 10 mg PO DAILY PRN PRN Reason: Sinus Symptoms Famotidine [Pepcid] 20 mg PO HS PRN PRN Reason: Heartburn Solifenacin Succinate [Vesicare] 10 mg PO DAILY Multivit-Min/FA/Lycopen/Lutein [Centrum Silver Tablet] 1 each PO DAILY Omeprazole 40 mg PO DAILY Acetaminophen [Tylenol Extra Strength] 1,000 mg PO BID PRN PRN Reason: Pain Estrogens, Conjugated Cream [Premarin Cream] 1 gm VAGINAL DIRECTED PRN PRN Reason: dryness Discharge Medication List Hydrochlorothiazide [Hydrodiuril] 25 mg PO DAILY 12/03/15 [History] Levothyroxine Sodium [Synthroid] 112 mcg PO DAILY 12/03/15 [History] Cetirizine HCl [Zyrtec] 10 mg PO DAILY PRN 03/15/18 [History] Famotidine [Pepcid] 20 mg PO HS PRN 03/14/19 [History] Solifenacin Succinate [Vesicare] 10 mg PO DAILY 03/14/19 [History] Acetaminophen [Tylenol Extra Strength] 1,000 mg PO BID PRN 05/24/19 [History] Estrogens, Conjugated Cream [Premarin Cream] 1 gm VAGINAL DIRECTED PRN 05/24/19 [History] Multivit-Min/FA/Lycopen/Lutein [Centrum Silver Tablet] 1 each PO DAILY 05/24/19 [History] Omeprazole 40 mg PO DAILY 05/24/19 [History] Cyclobenzaprine [Flexeril] 10 mg PO TID PRN #60 tab 06/01/19 [Rx] Gabapentin [Neurontin] 100 mg PO TID PRN #21 cap 06/01/19 [Rx] traMADol HCl [Ultram] 50 mg PO Q6H PRN #56 tab 06/01/19 [Rx] Follow up Appointment(s)/Referral(s): Dawson Oakes DO [Doctor of Osteopathic Medicine] - 06/12/19 11:00 am Emmanuelle Mcintosh III, MD [Primary Care Provider] - 1 Week Activity/Diet/Wound Care/Special Instructions: 1. Patient may shower with silver and Tegaderm dressing intact. 2. Patient may remove silver and Tegaderm dressing in 3 days and shower without a dressing at that time. 3. Patient should refrain from driving until at least after their first follow- up appointment in the office. 4. Patient should avoid excessive bending, twisting, and lifting; no lifting greater than 10 pounds 5. Take medications as prescribed 6. Do not soak in tub Discharge Disposition: HOME SELF-CARE
--- NOTE | 2019-06-02 23:13 | PN ---
PROGRESS NOTE DATE OF SERVICE: 06/02/2019 This 68-year-old woman who was admitted after lumbar laminectomy and decompression, improving significantly. No chest pain. No palpitations. No fever. PHYSICAL EXAMINATION: Alert and oriented x3. Pulse is 87, blood pressure 130/70, respiration 17, temperature 98.2, pulse ox 94% on room air. HEENT: Conjunctivae normal. Oral mucosa moist. NECK: No jugular venous distention. No lymph node enlargement. CARDIOVASCULAR: S1, S2. RESPIRATORY: Diminished breath sounds at the bases. No rhonchi, no crackles. ABDOMEN: Soft, nontender. LEGS: No edema, no swelling. NERVOUS SYSTEM: No focal deficits. LABS: WBC 8.2, hemoglobin 12.9, calcium is 8.3. ASSESSMENT: 1. Status post lumbar laminectomy and decompression L5-S1. 2. Mild postoperative fever as expected. 3. Postoperative vomiting as expected. 4. Hypertension. 5. Hypothyroidism. 6. History of gastroesophageal reflux disease. 7. History of migraines. 8. Seasonal allergies. 9. History of osteopenia. 10.History of ulcer. 11.History of hiatal hernia. 12.History of irritable bowel syndrome. 13.History of hernia repair. 14.History of tonsillectomy. 15.History of nicotine dependence. 16.FULL CODE. RECOMMENDATIONS AND DISCUSSION: I recommend to continue current medication and symptomatic treatment. Incentive spirometry. Patient had mild fever, most likely secondary to postoperative atelectasis. Otherwise, I recommend resume the home medications at home as well as follow with primary physician, Dr. Mcintosh and Orthopedic surgery. Further recommendations to follow. MMODL / IJN: [id number] /
== END 2019-06-02 13:05 | disposition home or self-care (01) | DRG 455 ==
LOC: 2ORMAIN 06:27 → EDSTATUS 07:30 → 4SSUR 12:43
PROVIDERS: ADMIT Orthopaedic Surgery Orthopaedic Surgery of the Spine; ATTEND Orthopaedic Surgery Orthopaedic Surgery of the Spine
PROC: 0SG3071 Fusion of Lumbosacral Joint with Autologous Tissue Substitute, Posterior Approach, Posterior Column, Open Approach (ICD-10-PCS; principal; 2019-05-30 07:30)
PROC: 0QB20ZZ Excision of Right Pelvic Bone, Open Approach (ICD-10-PCS; principal; 2019-05-30 07:30)
PROC: 0ST40ZZ Resection of Lumbosacral Disc, Open Approach (ICD-10-PCS; principal; 2019-05-30 07:30)
PROC: 01NR0ZZ Release Sacral Nerve, Open Approach (ICD-10-PCS; principal; 2019-05-30 07:30)
PROC: 0SG30AJ Fusion of Lumbosacral Joint with Interbody Fusion Device, Posterior Approach, Anterior Column, Open Approach (ICD-10-PCS; principal; 2019-05-30 07:30)
PROC: 01NB0ZZ Release Lumbar Nerve, Open Approach (ICD-10-PCS; principal; 2019-05-30 07:30)
DX: M43.17 Spondylolisthesis, lumbosacral region (principal); M43.16 Spondylolisthesis, lumbar region; M48.07 Spinal stenosis, lumbosacral region; M51.17 Intervertebral disc disorders with radiculopathy, lumbosacral region; M47.26 Other spondylosis with radiculopathy, lumbar region; E03.9 Hypothyroidism, unspecified; I10 Essential (primary) hypertension; J30.2 Other seasonal allergic rhinitis; K21.9 Gastro-esophageal reflux disease without esophagitis; M85.80 Other specified disorders of bone density and structure, unspecified site; G43.909 Migraine, unspecified, not intractable, without status migrainosus; G89.29 Other chronic pain; K44.9 Diaphragmatic hernia without obstruction or gangrene; K58.9 Irritable bowel syndrome, unspecified; M54.2 Cervicalgia; R11.2 Nausea with vomiting, unspecified; R50.9 Fever, unspecified; Z87.891 Personal history of nicotine dependence; Z79.890 Hormone replacement therapy; Z79.899 Other long term (current) drug therapy; Z88.5 Allergy status to narcotic agent; Z88.0 Allergy status to penicillin; Z87.11 Personal history of peptic ulcer disease; Z88.1 Allergy status to other antibiotic agents; Z91.041 Radiographic dye allergy status; Z90.710 Acquired absence of both cervix and uterus; Z90.49 Acquired absence of other specified parts of digestive tract; Z83.3 Family history of diabetes mellitus; Z80.1 Family history of malignant neoplasm of trachea, bronchus and lung; Z80.8 Family history of malignant neoplasm of other organs or systems; Z82.49 Family history of ischemic heart disease and other diseases of the circulatory system; Z83.49 Family history of other endocrine, nutritional and metabolic diseases
CPT/HCPCS: 72100; 80048; 85025; 86850; 86900; 86901

== ENCOUNTER → 2020-04-29 | Outpatient (CLI) | payer MEDICARE, OTHER ==
[2020-04-29 14:09] VITALS: BP 124/76; PULSE 72; RESP 18; TEMP 98
--- NOTE | 2020-04-29 14:54 | P.HPOB ---
History of Present Illness H&P Date: 04/29/20 Chief Complaint: The patient is here for her routine gynecologic exam and ma mmogram. This is a 69-year-old 014 with an LMP of 1983. She is status post vaginal hysterectomy and later BSO for benign reasons. She still has hot flashes during the day and night. She has been using an [id number] lubricant for vaginal dryness. She is otherwise without complaints. Review of Systems She is getting about 14 pounds over the past year. She attributes this to eating more and exercising less during the pandemic. She denies respiratory, cardiac and G.I. problems. She denies maltreatment or problems with falling. : she denies any significant problems with urinary leakage. Past Medical History Past Medical History: GERD/Reflux, Hypertension, Thyroid Disorder Additional Past Medical History / Comment(s): Hypothyroidism. Seasonal allergies, osteopenia and chronic back problems with degenerative disc disease. 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 History of Any Multi-Drug Resistant Organisms: None Reported Past Surgical History: Breast Surgery, Cholecystectomy, Hernia Repair, Hysterectomy, Orthopedic Surgery Additional Past Surgical History / Comment(s): HIATAL HERNIA REPAIR, KIDNEY SURGERY,CERVICAL FUSION,RIGHT ELBOW SX. Colonoscopy 2010. Vaginal hysterectomy 1983 and BSO in 2005. Left breast biopsy. Past Anesthesia/Blood Transfusion Reactions: No Reported Reaction Past Psychological History: No Psychological Hx Reported Smoking Status: Former smoker Past Alcohol Use History: Occasional (2 per week) Additional Past Alcohol Use History / Comment(s): STARTED SMOKING AT AGE 15 QUIT IN 1984 SMOKED 1PPD Past Drug Use History: None Reported Additional History: She has been since 1999 and is sexually active. She is retired. She has 4 great grandchildren. - Past Family History Sister(s) Family Medical History: Deep Vein Thrombosis (DVT) Additional Family Medical History / Comment(s): . Daughter(s) Family Medical History: Cancer Additional Family Medical History / Comment(s): LUNG CANCER Father Family Medical History: Cancer Additional Family Medical History / Comment(s): Renal cancer. Brother(s) Family Medical History: Diabetes Mellitus Medications and Allergies Home Medications Medication Instructions Recorded Confirmed Type Levothyroxine Sodium [Synthroid] 112 mcg PO DAILY 12/03/15 04/29/20 History hydroCHLOROthiazide [Hydrodiuril] 25 mg PO DAILY 12/03/15 04/29/20 History Cetirizine HCl [Zyrtec] 10 mg PO DAILY PRN 03/15/18 04/29/20 History Famotidine [Pepcid] 20 mg PO HS PRN 03/14/19 04/29/20 History Acetaminophen [Tylenol Extra 1,000 mg PO BID PRN 05/24/19 04/29/20 History Strength] Multivit-Min/FA/Lycopen/Lutein 1 each PO DAILY 05/24/19 04/29/20 History [Centrum Silver Tablet] Omeprazole 40 mg PO DAILY 05/24/19 04/29/20 History Allergies Allergy/AdvReac Type Severity Reaction Status Date / Time acetaminophen [From [place]] Allergy Rash/Hives Verified 04/29/20 13:53 codeine Allergy Rash/Hives Verified 04/29/20 13:53 hydrocodone [From [place]] Allergy Rash/Hives Verified 04/29/20 13:53 Iodinated Contrast Media Allergy Rash/Hives Verified 04/29/20 13:53 Iodine and Iodide Containing Allergy Rash/Hives Verified 04/29/20 13:53 Produc sulfamethoxazole Allergy Rash/Hives Unverified 04/29/20 13:53 [From Bactrim] trimethoprim [From Bactrim] Allergy Rash/Hives Unverified 04/29/20 13:53 Exam Vital Signs Temp Pulse Resp BP Pulse Ox 04/29/20 13:53 98.0 F 72 18 124/76 98 Intake and Output 04/28/20 04/29/20 04/29/20 22:59 06:59 14:59 Other: Weight 75.296 kg Height 5 feet 1 inch, weight 166 pounds, BMI 31.4. This is a well-developed well-nourished white female who is alert and oriented times 3 in no acute distress. HEENT: Within normal limits. NECK: Supple without mass or thyromegaly. CHEST AND LUNGS: Clear to auscultation. HEART: Regular rate and rhythm. BREASTS: Are without mass or discharge. The right nipple is inverted and it has been this way for many years according to the patient. The left nipple is not inverted. AXILLARY EXAM: Negative for adenopathy. BACK: Negative for CVA tenderness. ABDOMEN: Soft, nontender, without palpable masses. PELVIC EXAM: External genitalia appears normal with mild atrophy. Vagina appears normal with mild atrophy. There is no evidence of prolapse. Bimanual examination is negative for mass or tenderness. RECTAL EXAM: Rectovaginal exam is negative for mass or tenderness and is negative for occult blood. EXTREMITIES: Nontender. IMPRESSION: 1. 69-year-old menopausal female status post vaginal hysterectomy and later BSO for benign reasons with normal gynecologic exam. 2. History of osteopenia. PLAN: 1. Pap smears have been discontinued. 2. Self breast awareness was discussed with the patient. 3. Osteoporosis prevention was discussed. I have stressed the importance of adequate calcium, vitamin D and regular exercise. Recommended amounts of calcium and vitamin D were also discussed. Bone density testing will be done today. 4. She did receive her flu shot this past fall. She plans on getting a covid vaccination when available to her. 5. She was advised to return in one year for her annual well woman exam.
--- NOTE | 2020-04-29 19:19 | BD ---
EXAMINATION TYPE: Axial Bone Density DATE OF EXAM: 04/29/2020 COMPARISON: 02/22/2018 CLINICAL HISTORY: Postmenopausal screening Height: 5 FT 1 IN Weight: 166 FRAX RISK QUESTIONS: Alcohol (3 or more units per day): NO Family History (Parent hip fracture): YES Glucocorticoids (More than 3mos): NO (Ex: prednisone, prednisolone, methylprednisolone, dexamethasone, and hydrocortisone). History of Fracture in Adulthood: NO Secondary Osteoporosis: 1. Type 1 Diabetes: NO 2. Hyperthyroidism: NO 3. Menopause before 45: PART HYST AGE 33 OVARIES REMOVED AGE 53 4. Malnutrition: NO 5. Chronic liver disease: NO Rheumatoid Arthritis: NO Current Tobacco Use: NO RISK FACTORS HISTORY OF: Surgery to Spine/Hip(right/left)/Wrist (right/left): LUMBAR SURG HARDWARE When: 2019 Family History of Osteoporosis: NO Active: NO Diet low in dairy products/other sources of calcium: NO Postmenopausal woman: PART HYST AGE 33 OVARIES AGE 53 Take estrogen and/or progesterone medications: NONE Lost more than 2 inches in height since high school: YES MEDICATIONS: Thyroid Medications: YES Which medication: SYNTHROID How Long: LONG TIME Additional Medications: SYNTHROID, HYDROCHLOROTHIAZIDE, OMEPRAZOLE,VESICARE Additional History: EXAM MEASUREMENTS: Bone mineral density about the R hip (g/cm2): 0.774 Bone mineral density about the L hip (g/cm2): 0.769 T Score values are as follows: -----R Neck: -1.9 -----L Neck: -1.9 -----R Total: -1.2 -----L Total: -1.5 Bone mineral density has: DECREASED -9.4 % since study of: 2017 Bone mineral density about the L Wrist (g/cm2): 0.583 T Score values are as follows: -----Dist. R+U: -2.2 -----Prox. R+U: -0.9 -----Radius total: -1.5 FIRST TIME WRIST HAS BEEN DONE IMPRESSION: Osteopenia (T Score between -2.5 and -1). There is slightly increased risk of fracture and the patient may be considered for treatment. Re-Screen 2-5 years. NOTE: T-SCORE=SD OF THE YOUNG ADULT MEAN.
--- NOTE | 2020-05-01 13:49 | MM ---
Reason for exam: screening (asymptomatic). Last mammogram was performed 1 year and 1 month ago. History: Patient is postmenopausal. 2 benign excisional biopsies of the left breast. Took estrogen for 1 year 2 months. Physical Findings: A clinical breast exam by your physician is recommended on an annual basis and results should be correlated with mammographic findings. MG 3D Screening Mammo W/Cad Bilateral CC and MLO view(s) were taken. Prior study comparison: March 14, 2019, bilateral MG 3d screening mammo w/cad. February 22, 2018, bilateral MG 3d screening mammo w/cad. There are scattered fibroglandular densities. There is chronic nodularity bilaterally. No significant changes when compared with prior studies. ASSESSMENT: Benign, BI-RAD 2 RECOMMENDATION: Routine screening mammogram of both breasts in 1 year.
== END | disposition home or self-care (01) ==
LOC: WWCWWP 12:50
PROVIDERS: ATTEND Obstetrics & Gynecology
DX: Z12.31 Encounter for screening mammogram for malignant neoplasm of breast (principal); M85.80 Other specified disorders of bone density and structure, unspecified site; Z78.0 Asymptomatic menopausal state
CPT/HCPCS: 77063; 77067; 77080

== ENCOUNTER → 2020-07-07 | Outpatient (CLI) | payer MEDICARE ==
--- NOTE | 2020-07-07 11:40 | US ---
EXAMINATION TYPE: US carotid duplex BILAT DATE OF EXAM: 07/07/2020 COMPARISON: NONE CLINICAL HISTORY: A88.1 Epidemic vertigo, R42 Dizsiness, I65.22. Patient states being dizzy. No HTN. EXAM MEASUREMENTS: RIGHT: Peak Systolic Velocity (PSV) cm/sec ----- Right CCA: 115.7 ----- Right ICA: 108.1 ----- Right ECA: 47.0 ICA/CCA ratio: 0.9 RIGHT: End Diastole cm/sec ----- Right CCA: 22.7 ----- Right ICA: 24.1 ----- Right ECA: 0.0 LEFT: Peak Systolic Velocity (PSV) cm/sec ----- Left CCA: 99.1 ----- Left ICA: 94.3 ----- Left ECA: 58.1 ICA/CCA ratio: 1.0 LEFT: End Diastole cm/sec ----- Left CCA: 16.3 ----- Left ICA: 27.0 ----- Left ECA: 0.0 VERTEBRALS (direction of flow): Right Vertebral: Antegrade Left Vertebral: Antegrade Rhythm: Normal No plaque visualized. Elevated right proximal CCA, Left proximal CCA and left mid CCA. No significan t stenosis. Wall thickening. IMPRESSION: No evidence for hemodynamically significant stenosis. Criteria for Assigning % of Stenosis / Diameter reduction (Estimation based on the indirect measurements of the internal carotid artery velocities (ICA PSV). 1. Normal (no stenosis)=ICA PSV < 125 cm/s: ratio < 2.0: ICA EDV<40 cm/s. 2. Less than 50% stenosis=ICA PSV < 125 cm/s: ratio < 2.0: ICA EDV<40 cm/s. 3. 50 to 69% stenosis=ICA PSV of 125 to 230 cm/s: ration 2.0 ? 4.0: ICA EDV 40-100 cm/s. 4. Greater than 70% stenosis to near occlusion= ICA PSV > 230 cm/s: ratio > 4.0: ICA EDV > 100 cm/s. 5. Near occlusion= ICA PSV velocities may be low or undetectable: variable ratio and ICA EDV. 6. Total occlusion=unable to detect flow.
--- NOTE | 2020-07-08 11:49 | ECHOF ---
Referral Reason:A88.1 Epidemic vertigo, R42 Dizsiness, I65.22 MEASUREMENTS -------- HEIGHT: 157.5 cm WEIGHT: 74.8 kg BP: RVIDd: 4.2 cm (< 3.3) IVSd: 1.2 cm (0.6 - 1.1) LVIDd: 3.0 cm (3.9 - 5.3) LVPWd: 1.2 cm (0.6 - 1.1) IVSs: 1.3 cm LVIDs: 1.7 cm LVPWs: 1.5 cm LAESV Index (A-L): 36.45 ml/m Ao Diam: 2.3 cm (2.0 - 3.7) AV Cusp: 1.9 cm (1.5 - 2.6) MV EXCURSION: 16.901 mm (> 18.000) MV EF SLOPE: 94 mm/s (70 - 150) EPSS: 0.3 cm MV E David: 1.00 m/s MV DecT: 254 ms MV A David: 0.91 m/s MV E/A Ratio: 1.10 RAP: 5.00 mmHg RVSP: 25.92 mmHg FINDINGS -------- Sinus rhythm. This was a technically adequate study. The left ventricular size is normal. There is mild concentric left ventricular hypertrophy. Overa ll left ventricular systolic function is normal with, an EF between 55 - 60 %. The diastolic fillin g pattern is normal for the age of the patient 12.60. The right ventricle is moderately enlarged. LA is moderately dilated 34-39 ml/m2 The right atrial size is normal. Interatrial and interventricular septum intact. The aortic valve is trileaflet and appears structurally normal. There is no evidence of aortic regu rgitation. There is no evidence of aortic stenosis. Mild mitral regurgitation is present. Mild tricuspid regurgitation present. There is no evidence of pulmonary hypertension. The right v entricular systolic pressure, as measured by Doppler, is 25.92mmHg. There is no pulmonic regurgitation present. The aortic root size is normal. Normal inferior vena cava with normal inspiratory collapse consistent with estimated right atrial pre ssure of 5 mmHg. There is no pericardial effusion. CONCLUSIONS -------- 1. The left ventricular size is normal. 2. There is mild concentric left ventricular hypertrophy. 3. Overall left ventricular systolic function is normal with, an EF between 55 - 60 %. 4. The diastolic filling pattern is normal for the age of the patient 12.60 5. The right ventricle is moderately enlarged. 6. LA is moderately dilated 34-39 ml/m2 7. Mild mitral regurgitation is present. 8. Mild tricuspid regurgitation present. INSIDE SALES ADVERTISING EXECUTIVE: Jonna Bundy RDCS
== END ==
LOC: RADUSWWP 11:02
PROVIDERS: ATTEND Family Medicine
DX: A88.1 Epidemic vertigo (principal); R42 Dizziness and giddiness; I65.22 Occlusion and stenosis of left carotid artery; I08.1 Rheumatic disorders of both mitral and tricuspid valves
CPT/HCPCS: 93306; 93880

== ENCOUNTER → 2020-07-14 | Outpatient (CLI) | payer MEDICARE ==
--- NOTE | 2020-07-14 13:36 | XR ---
Cervical spine HISTORY: R 42, H 81.4 5 views of the cervical spine The patient is edentulous. There is no evident foraminal encroachment with exception of C4-5 likely c ontributed by the listhesis. Anterolisthesis grade 1 C4-5. Prior fusion present at C5-6. Facet arthro matthew changes present. Prevertebral soft tissues are normal. Loss of disc height present C3-4. Cervic al vertebral bodies show preserved height and bone mineralization. There is mild spondylosis. IMPRESSION: Degenerative disc disease, facet arthropathy.
== END | disposition home or self-care (01) ==
LOC: RADXRMAIN 12:55
PROVIDERS: ATTEND Family Medicine
DX: M50.30 Other cervical disc degeneration, unspecified cervical region (principal); M47.812 Spondylosis without myelopathy or radiculopathy, cervical region; Z98.1 Arthrodesis status
CPT/HCPCS: 72050

== ENCOUNTER → 2020-08-02 | Outpatient (CLI) | payer MEDICARE, OTHER ==
--- NOTE | 2020-08-02 10:34 | MR ---
EXAMINATION TYPE: MR brain/cspine wo/w DATE OF EXAM: 08/02/2020 COMPARISON: CT brain November 16, 2009. Cervical spine x-ray July 14, 2020 HISTORY: Vertigo, dizziness, loss of balance. DDD. TECHNIQUE: Multiplanar, multisequence images of the brain and brainstem and cervical spine are all performed wit hout and with IV contrast, utilizing 7 mL intravenous Gadavist . FINDINGS: BRAIN: Diffusion weighted images demonstrate no evidence of a recent infarct or other diffusion abnormality. There is mild ventricular and sulcal prominence. Scattered areas of T2 hyperintensity throughout th e white matter bilaterally are identified. Roughly 40 lesions are seen with more confluent appearance deep right parietal white matter. Midline structures demonstrate empty sella morphology. The craniocervical junction appears within no rmal limits. Post contrast images demonstrate no abnormal enhancement. The dural venous sinuses appe ar patent. The visualized sinuses are clear and the globes are intact. Tortuous optic nerves with inc reased surrounding CSF prominence noted. Increased fluid signal left mastoid air cells is now identif ied. IMPRESSION: New mild diffuse cerebral atrophy and mild to moderate chronic small vessel ischemic loza ge. Possible new mild left-sided mastoiditis, correlate clinically. Possible intracranial hypertensio n, correlate clinically. MRI CERVICAL SPINE: FINDINGS: Sagittal images of the cervical spine show the craniocervical junction to appear within nor mal limits. The cervical and upper thoracic spinal cord is normal in course, caliber, and signal. V ertebral alignment is stable. Persistent ossific fusion of the C5 and C6 vertebra otherwise vertebral body heights and disc space heights fairly well maintained. The bone marrow signal intensity is wit hin normal limits. No suspicious postcontrast enhancement. Axial images at C2-C3 level shows tiny central disc protrusion mildly effacing anterior thecal sac. Axial images at C3-C4 level shows broad-based right paracentral/foraminal disc protrusion effacing an terolateral thecal sac and causing moderate right-sided neural foraminal narrowing. Axial images at C4-C5 level show focal central disc protrusion effacing anterior thecal sac, patent b ilateral neural foramina. Axial images at C5-C6 level show ossified disc, patent bilateral neural foramina. Axial images at C6-C7 level show focal central disc protrusion minimally effacing anterior thecal sac seen best on sagittal image 7, patent bilateral neural foramina. Axial images at C7-T1 level appear within normal limits. IMPRESSION: Ossific fusion C5 and C6 vertebra redemonstrated. Multilevel degenerative changes as deta iled above, largest disc herniation noted right C3-C4 level.
== END | disposition home or self-care (01) ==
LOC: RADMRIMAIN 08:28
PROVIDERS: ATTEND Family Medicine
DX: I67.82 Cerebral ischemia (principal); G31.9 Degenerative disease of nervous system, unspecified; M50.223 Other cervical disc displacement at C6-C7 level; M99.71 Connective tissue and disc stenosis of intervertebral foramina of cervical region
CPT/HCPCS: 70553; 72156; A9585

== ENCOUNTER → 2020-10-13 | Outpatient (CLI) | payer MEDICARE, OTHER ==
--- NOTE | 2020-10-13 19:38 | CT ---
EXAMINATION TYPE: CT iac wo con DATE OF EXAM: 10/13/2020 COMPARISON: MRI brain 08/02/2020 HISTORY: 69-year-old female Dizziness and headaches. CT DLP: 150 mGycm Automated exposure control for dose reduction was used. TECHNIQUE: Contiguous high-resolution axial scanning of the temporal without IV contrast. Coronal re formatted images obtained. FINDINGS: There is no abnormality of visualized intracranial structures allowing for thin section noncontrast C T. The skull base appears normal. The external auditory canals are clear. The middle ear cavities are well pneumatized. There is no abnormality of middle ear ossicles. Partial opacification inferior left mastoid air cells as seen on recent MRI. The round and oval windows are normal. There is no abnormality of bony labyrinths. No dehiscence of the superior semicircular canals. The vestibular and cochlear aqueducts are well visualized. The facial nerve canal is normal bilaterally. The internal auditory canal and meati are symmetrical bilaterally. There is no evidence of fractures. There appears to be prior sinonasal surgery with medial maxillary antrectomies. Right-sided safia bu llosa. Trace mucosal thickening ethmoid air cells. Tortuous optic nerves as seen on MRI. Reformatted images confirm above findings. IMPRESSION: 1. Some trapped fluid in the inferior left mastoid air cells. Correlate for any mastoid pain to exclu de mastoiditis. 2. Otherwise, no specific abnormality on temporal bone CT.
== END | disposition home or self-care (01) ==
LOC: RADCTMAIN 13:00
PROVIDERS: ATTEND Otolaryngology
DX: H70.90 Unspecified mastoiditis, unspecified ear (principal); R42 Dizziness and giddiness
CPT/HCPCS: 70480

== ENCOUNTER → 2021-01-21 | Outpatient (CLI) | payer MEDICARE, OTHER ==
--- NOTE | 2021-01-21 13:09 | US ---
EXAMINATION TYPE: US kidneys/renal and bladder DATE OF EXAM: 01/21/2021 COMPARISON: Bilateral CLINICAL HISTORY: N39.0 Urinary tract infection, site not specified. recurrent UTI's EXAM MEASUREMENTS: Right Kidney: 10.8 x 3.9 x 4.0 cm Left Kidney: 10.1 x 5.1 x 4.9 cm Right Kidney: hydronephrosis Left Kidney: mild hydronephrosis Bladder: appears wnl Bilateral Jets seen: no IMPRESSION: Bilateral hydronephrosis, greater on the right. This is an interval from 2014
== END | disposition home or self-care (01) ==
LOC: RADUSWWP 12:26
PROVIDERS: ATTEND Urology
DX: N13.30 Unspecified hydronephrosis (principal); N39.0 Urinary tract infection, site not specified
CPT/HCPCS: 76770

== ENCOUNTER → 2021-02-09 | Outpatient (CLI) | payer BC, MEDICARE ==
[2021-02-09 13:56] LABS: African American GFR (CKD) >90 (>60 ml/min/1.73 sqM); Blood Urea Nitrogen 19 mg/dL (7-17); Non-African American GFR(CKD) 81 (>60 ml/min/1.73 sqM)
--- NOTE | 2021-02-10 07:05 | CT ---
EXAMINATION TYPE: CT urogram wo/w con DATE OF EXAM: 02/09/2021 HISTORY: Unspecified hydronephrosis CT DLP: 1828mGycm Automated Exposure Control for Dose Reduction was Utilized. CONTRAST: CT scan of the abdomen and pelvis is performed without oral and without and with IV Contrast, patient injected with 100 mL of Isovue 300. COMPARISON: CT August 19, 2009. Renal ultrasound January 21, 2021 FINDINGS: KUB: Noncontrast images show no renal calculi bilaterally. Postcontrast images show symmetric cortica l medullary uptake and excretion. There is slightly more anterior positioning or rotation of both kid neys redemonstrated. There is no left-sided hydronephrosis. There is moderate right-sided hydronephro sis redemonstrated similar to 2010 study. No significant hydroureter bilaterally. Bladder fills with contrast without intraluminal mass or calculus. There are 2 right renal arteries redemonstrated. LUNG BASES: No significant abnormality is appreciated. LIVER/GB: No significant abnormality is appreciated. PANCREAS: No significant abnormality is seen. SPLEEN: No significant abnormality is seen. ADRENALS: No significant abnormality is seen. BOWEL: Diffuse colonic diverticulosis. No CT evidence for acute diverticulitis Small bowel feces side terminal ileum. No suspicious small bowel dilatation. Findings consistent with delayed passage of in gested material to colonic level. UTERUS/ADNEXA: Uterus redemonstrated surgically absent. Occasional scattered pelvic phleboliths are r edemonstrated. LYMPH NODES: No greater than 1cm abdominal or pelvic lymph nodes are appreciated. OSSEOUS STRUCTURES: Postsurgical changes lumbosacral junction with posterior rods and screws and casey ficial disc material. OTHER: Several small Fat-containing ventral wall hernia in the upper abdomen above the umbilicus are present. IMPRESSION: There is moderate right-sided hydronephrosis without delayed excretion redemonstrated. No significant change from 2010 CT. No delayed excretion noted. Consider UPJ stricture or stenosis.
== END | disposition home or self-care (01) ==
LOC: RADCTMAIN 13:04
PROVIDERS: ATTEND Urology
DX: N13.30 Unspecified hydronephrosis (principal)
CPT/HCPCS: 82565; 84520; 74178; 36415; 74400; Q9967

== ENCOUNTER → 2021-04-09 | Outpatient (CLI) | payer MEDICARE, OTHER ==
--- NOTE | 2021-04-09 15:00 | FL ---
EXAMINATION TYPE: FL barium swallow DATE OF EXAM: 04/09/2021 CLINICAL INDICATION: 70 year-old female K21.9, GERD without esophagitis. History of hiatal hernia rep air 10 years ago. COMPARISON: None Total Fluoroscopy Time: 1 minute 54 seconds Total images: 51 FINDINGS: The swallowing mechanism is normal and hypopharyngeal anatomy is preserved. The cervical and thoracic portions have a normal course and caliber. Mild tertiary peristaltic waves are demonstrated. The mucosa is normal and no persistent filling defect is encountered. There is prompt passage of contrast from the esophagus to the stomach. There is slight irregularity a long the margin of the stomach just below the GE junction probably related to changes of the patient' s previous Lukas wrap. There is a recurrent small hiatal hernia. When the patient is supine, Valsalva maneuver instantaneous ly results in severe gastroesophageal reflux into the patient's mouth. IMPRESSION: 1. Recurrent small hiatal hernia. Valsalva maneuver results in very severe gastroesophageal reflux in to the patient's mouth. 2. Slight irregularity along the proximal stomach just below the GE junction may reflect some distort ion related to the patient's Lukas fundoplication wrap; clinically correlate.
== END | disposition home or self-care (01) ==
LOC: RADUSWWP 13:27
PROVIDERS: ATTEND Family Medicine
DX: K21.9 Gastro-esophageal reflux disease without esophagitis (principal); K44.9 Diaphragmatic hernia without obstruction or gangrene
CPT/HCPCS: 74220

== ENCOUNTER 2021-04-23 09:38 | Day surgery (SDC) | payer MEDICARE, OTHER ==
[2021-04-21 09:28] VITALS: BMI 31.1
[~2021-04-23 09:38] MED LIST changes: -BACITRACIN 50,000 UNIT, POLYMYXIN B 500,000 UNIT in SODIUM CHLORIDE 0.9% IRRIGATIO 1,00... IRRIGATION ONE; -DEXAMETHASONE SOD PHOSPHATE 10 MG/ML 1 ML VIAL IV ONE; +LACTATED RINGERS 1,000 ML IV SCH; +LIDOCAINE 1% (10MG/ML) FOR IV START INTRADERMA PRN; -LIDOCAINE 1% 20 ML VIAL (10MG/ML) FOR IV START INTRADERMA PRN; -MIDAZOLAM 2 MG/2 ML VIAL IV PRN; -ONDANSETRON 4 MG/2 ML VIAL IVP ONE; -fentaNYL (PF) 50 MCG/ML 2 ML AMP IVP PRN
[2021-04-23 10:46] VITALS: TEMP 98.9
[2021-04-23] MEDS ORDERED: PROPOFOL 10 MG/ML 20 ML VIAL IV ONE (11:34)
[2021-04-23] MEDS ORDERED: LIDOCAINE 1% INJ 10MG/ML (20 ML MDV) ONE (11:34)
--- NOTE | 2021-04-23 11:37 | P.GSHP ---
History of Present Illness H&P Date: 04/23/21 Chief Complaint: GERD 's is a 70-year-old female who presents today for EGD. Patient issues with GERD. Past Medical History Past Medical History: GERD/Reflux, Hypertension, Musculoskeletal Disorder, Thyroid Disorder Additional Past Medical History / Comment(s): Hypothyroidism. Seasonal allergies, osteopenia and degenerative disc disease. Incontinent of urine on occasion. History of Any Multi-Drug Resistant Organisms: None Reported Past Surgical History: Back Surgery, Breast Surgery, Cholecystectomy, Hernia Repair, Hysterectomy, Orthopedic Surgery Additional Past Surgical History / Comment(s): HIATAL HERNIA REPAIR, KIDNEY SURGERY, CERVICAL FUSION, RIGHT ELBOW SURGERY, Colonoscopy, Vaginal hysterectomy 1983 and BSO in 2005, left breast biopsy. Past Anesthesia/Blood Transfusion Reactions: No Reported Reaction Past Psychological History: No Psychological Hx Reported Smoking Status: Former smoker Past Alcohol Use History: Occasional Additional Past Alcohol Use History / Comment(s): STARTED SMOKING AT AGE 15, QUIT IN 1984, SMOKED 1PPD. Past Drug Use History: None Reported - Past Family History Sister(s) Family Medical History: Deep Vein Thrombosis (DVT) Additional Family Medical History / Comment(s): . Daughter(s) Family Medical History: Cancer Additional Family Medical History / Comment(s): LUNG CANCER. Father Family Medical History: Cancer Additional Family Medical History / Comment(s): Renal cancer. Brother(s) Family Medical History: Diabetes Mellitus Medications and Allergies Home Medications Medication Instructions Recorded Confirmed Type Levothyroxine Sodium [Synthroid] 112 mcg PO DAILY 12/03/15 04/23/21 History hydroCHLOROthiazide [Hydrodiuril] 25 mg PO DAILY 12/03/15 04/23/21 History Acetaminophen [Tylenol Extra 1,000 mg PO BID PRN 05/24/19 04/23/21 History Strength] Aspirin 81 mg PO DAILY 04/21/21 04/23/21 History Montelukast [Singulair] 10 mg PO HS PRN 04/21/21 04/23/21 History Multivit-Min/FA/Lycopen/Lutein 1 each PO DAILY 04/21/21 04/23/21 History [Centrum Silver Tablet] Pantoprazole [Protonix] 40 mg PO DAILY 04/21/21 04/23/21 History Solifenacin Succinate 20 mg PO DAILY 04/21/21 04/23/21 History Allergies Allergy/AdvReac Type Severity Reaction Status Date / Time codeine Allergy Rash/Hives Verified 04/23/21 10:32 hydrocodone [From [place]] Allergy Rash/Hives Verified 04/23/21 10:32 Iodinated Contrast Media Allergy Rash/Hives Verified 04/23/21 10:32 Iodine and Iodide Containing Allergy Rash/Hives Verified 04/23/21 10:32 Produc sulfamethoxazole Allergy Rash/Hives Verified 04/23/21 10:32 [From Bactrim] trimethoprim [From Bactrim] Allergy Rash/Hives Verified 04/23/21 10:32 Surgical - Exam Vital Signs Temp Pulse Resp BP Pulse Ox 98.9 F 67 16 188/83 98 04/23/21 10:45 04/23/21 10:45 04/23/21 10:45 04/23/21 10:45 04/23/21 10:45 - General well developed, well nourished, no distress - Eyes PERRL - ENT normal pinna - Neck no masses - Respiratory normal expansion - Cardiovascular Rhythm: regular - Abdomen Abdomen: soft, non tender Assessment and Plan Assessment: GERD. We'll perform EGD.
--- NOTE | 2021-04-23 11:48 | P.OP ---
Date of Procedure: 04/23/21 Preoperative Diagnosis: GERD Postoperative Diagnosis: Antral gastritis Small hiatal hernia Mild esophagitis Procedure(s) Performed: EGD Anesthesia: MAC Surgeon: Slava Reyes Pathology: other (Antrum, esophagus) Condition: stable Disposition: PACU Description of Procedure: Patient's placed on the endoscopy table in the lateral position. She received IV sedation. The gastro-/oropharynx passed in the esophagus and stomach. Scope was placed through the pylorus. The first and second portion of the duodenum appeared normal. Scope summer back the antrum was mildly inflamed. A biopsies performed. The scope was then retroflexed and the remainder of the stomach appeared normal. The patient had a very small hiatal hernia. The GE junction was at 38 cm the distal esophagus appeared mildly inflamed a biopsies. The proximal esophagus appeared normal. Scope withdrawn for patient.
[2021-04-23 12:34] VITALS: BP 143/80; PULSE 69; RESP 18
== END 2021-04-23 12:48 | disposition home or self-care (01) ==
LOC: ORWHC2ENDO 09:38
PROVIDERS: ATTEND Surgery
DX: K29.70 Gastritis, unspecified, without bleeding (principal); K44.9 Diaphragmatic hernia without obstruction or gangrene; K20.90 Esophagitis, unspecified without bleeding; K21.9 Gastro-esophageal reflux disease without esophagitis; E03.9 Hypothyroidism, unspecified; M85.80 Other specified disorders of bone density and structure, unspecified site; Z87.891 Personal history of nicotine dependence
CPT/HCPCS: 43239; 88305; J2001; J2704

== ENCOUNTER → 2021-06-02 | Outpatient (CLI) | payer MEDICARE ==
--- NOTE | 2021-06-02 10:21 | P.HPOB ---
History of Present Illness H&P Date: 06/02/21 Chief Complaint: The patient is here for her routine gynecologic exam and ma mmogram. This is a 70-year-old 014 with an LMP of 1983. She is status post vaginal hysterectomy and later BSO for benign reasons. She still has some hot flashes during the day and night. She has recently noticed occasional right groin or pelvic discomfort. She wonders if it's related to doing abdominal exercises. She is otherwise without complaints. Review of Systems The patient has gained 12 pounds over the last year. She denies respiratory or cardiac problems. GI: Occasional gastric reflux symptoms. : She is seeing Dr. Parr, the urologist for frequent urinary tract infections and intermittent incontinence. Past Medical History Past Medical History: GERD/Reflux, Hypertension, Musculoskeletal Disorder, Thy roid Disorder Additional Past Medical History / Comment(s): Hypothyroidism. Seasonal allergies, osteopenia and degenerative disc disease. Incontinent of urine on occasion. 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 History of Any Multi-Drug Resistant Organisms: None Reported Past Surgical History: Back Surgery, Breast Surgery, Cholecystectomy, Hernia Repair, Hysterectomy, Orthopedic Surgery Additional Past Surgical History / Comment(s): HIATAL HERNIA REPAIR, KIDNEY SURGERY, CERVICAL FUSION, RIGHT ELBOW SURGERY, Colonoscopy, Vaginal hysterectomy 1983 and BSO in 2005, left breast biopsy. Upper endoscopy (EGD) 2021. Past Anesthesia/Blood Transfusion Reactions: No Reported Reaction Past Psychological History: No Psychological Hx Reported Smoking Status: Former smoker Past Alcohol Use History: Occasional (1 or 2 per week) Additional Past Alcohol Use History / Comment(s): STARTED SMOKING AT AGE 15, QUIT IN 1984, SMOKED 1PPD. Past Drug Use History: None Reported Additional History: She has been since 1999 and is sexually active. She is retired. - Past Family History Sister(s) Family Medical History: Deep Vein Thrombosis (DVT) Additional Family Medical History / Comment(s): . Daughter(s) Family Medical History: Cancer Additional Family Medical History / Comment(s): LUNG CANCER. Father Family Medical History: Cancer Additional Family Medical History / Comment(s): Renal cancer. Brother(s) Family Medical History: Diabetes Mellitus Medications and Allergies Home Medications Medication Instructions Recorded Confirmed Type Levothyroxine Sodium [Synthroid] 112 mcg PO DAILY 12/03/15 06/02/21 History hydroCHLOROthiazide [Hydrodiuril] 25 mg PO DAILY 12/03/15 06/02/21 History Acetaminophen [Tylenol Extra 1,000 mg PO BID PRN 05/24/19 06/02/21 History Strength] Aspirin 81 mg PO DAILY 04/21/21 06/02/21 History Montelukast [Singulair] 10 mg PO HS PRN 04/21/21 06/02/21 History Multivit-Min/FA/Lycopen/Lutein 1 each PO DAILY 04/21/21 06/02/21 History [Centrum Silver Tablet] Pantoprazole [Protonix] 40 mg PO DAILY 04/21/21 06/02/21 History Solifenacin Succinate 20 mg PO DAILY 04/21/21 06/02/21 History Allergies Allergy/AdvReac Type Severity Reaction Status Date / Time codeine Allergy Rash/Hives Verified 06/02/21 09:48 hydrocodone [From [place]] Allergy Rash/Hives Verified 06/02/21 09:48 Iodinated Contrast Media Allergy Rash/Hives Verified 06/02/21 09:48 Iodine and Iodide Containing Allergy Rash/Hives Verified 06/02/21 09:48 Produc sulfamethoxazole Allergy Rash/Hives Verified 06/02/21 09:48 [From Bactrim] trimethoprim [From Bactrim] Allergy Rash/Hives Verified 06/02/21 09:48 Exam Height 5 feet 2-1/2 inches, weight 178 pounds, BMI Height 5 feet 2-1/2 inches, weight 178 pounds, BMI 31. This is a well-developed well-nourished white female who is alert and oriented times 3 in no acute distress. HEENT: Within normal limits. NECK: Supple without mass or thyromegaly. CHEST AND LUNGS: Clear to auscultation. HEART: Regular rate and rhythm. BREASTS: Are without mass or discharge. There is right nipple inversion which the patient states she has had for many years. AXILLARY EXAM: Negative for adenopathy. BACK: Negative for CVA tenderness. ABDOMEN: Soft, nontender, without palpable masses. PELVIC EXAM: External genitalia appears normal with mild atrophy. Vagina appears normal with mild atrophy. There is no evidence of prolapse. Bimanual examination is negative for mass or tenderness. RECTAL EXAM: Rectovaginal exam is negative for mass or tenderness and is negative for occult blood. EXTREMITIES: Nontender. IMPRESSION: 1. 78-year-old menopausal female who is status post vaginal hysterectomy and later BSO for benign reasons, with normal gynecologic exam. 2. History of osteopenia. 3. History of chronic urinary incontinence status post sling procedure. 4. Recent right lower quadrant pains which are mild with no significant physical findings on exam today. Since she has had a hysterectomy and BSO, I doubt this is gynecologic problem. PLAN: 1. Pap smears have been discontinued. 2. Self breast awareness was discussed with the patient. We have also discussed symptoms associated with inflammatory breast cancer. 3. Screening mammogram will be done today. 4. Osteoporosis prevention was discussed. I have stressed the importance of adequate calcium, vitamin D and regular exercise. Recommended amounts of calcium and vitamin D were also discussed. We will plan on repeating bone density testing in 2022. Her last one was done in April 2020. 5. She has completed her Covid vaccination series and has received her booster. 6. She will try to avoid activities seem to make the right lower quadrant pains worse. She will call if she is having worsening symptoms or problems. 7. She will continue to see her urologist for bladder problems. If she would like to see a gynecologic urologist for worsening urinary incontinence, she was instructed to call and we can discuss this possibility. 8. She was advised to return in one year for her annual well woman exam.
[2021-06-02 10:44] VITALS: BP 150/65; PULSE 75; RESP 18; TEMP 97.7
--- NOTE | 2021-06-03 10:41 | MM ---
Reason for exam: screening (asymptomatic). Last mammogram was performed 1 year and 1 month ago. History: Patient is postmenopausal. 2 benign excisional biopsies of the left breast. Took estrogen for 1 year 2 months. Physical Findings: A clinical breast exam by your physician is recommended on an annual basis and results should be correlated with mammographic findings. MG 3D Screening Mammo W/Cad Bilateral CC and MLO view(s) were taken. Prior study comparison: April 29, 2020, bilateral MG 3d screening mammo w/cad. March 14, 2019, bilateral MG 3d screening mammo w/cad. The breast tissue is heterogeneously dense. This may lower the sensitivity of mammography. There is chronic nodularity bilaterally. There is no dominant lesion. No significant changes when compared with prior studies. ASSESSMENT: Benign, BI-RAD 2 RECOMMENDATION: Routine screening mammogram of both breasts in 1 year.
== END | disposition home or self-care (01) ==
LOC: WWCWWP 08:53
PROVIDERS: ATTEND Obstetrics & Gynecology
DX: Z12.31 Encounter for screening mammogram for malignant neoplasm of breast (principal); Z01.419 Encounter for gynecological examination (general) (routine) without abnormal findings
CPT/HCPCS: 77063; 77067

== ENCOUNTER → 2021-08-26 | Outpatient (CLI) | payer MEDICARE ==
--- NOTE | 2021-08-25 17:56 | P.PN ---
Progress Note - Text Progress Note Date: 08/25/21 The patient has called because of changes in the right breast. She has had an inverted nipple on the right side for many years. She has recently noticed in the last 2 weeks a yellowish discharge. The discharge is small in volume, but now she is noticing some liquid on her bra. She denies any blood in the discharge. She has also noticed itching of the right nipple. Diagnostic right mammogram is scheduled for 08/26/2021.
--- NOTE | 2021-08-26 12:10 | MM ---
Reason for exam: clinical finding. Last mammogram was performed 3 months ago. History: Patient is postmenopausal. 2 benign excisional biopsies of the left breast. Took estrogen for 1 year 2 months. Physical Findings: A clinical breast exam by your physician is recommended on an annual basis and results should be correlated with mammographic findings. MG 3D Diag Mammo W/Cad RT CC and MLO view(s) were taken of the right breast. Prior study comparison: June 02, 2021, bilateral MG 3d screening mammo w/cad. April 29, 2020, bilateral MG 3d screening mammo w/cad. The breast tissue is heterogeneously dense. This may lower the sensitivity of mammography. Stable nodule right breast dating back to 2012. Results were given to the patient verbally at the time of the exam. ASSESSMENT: Benign, BI-RAD 2 RECOMMENDATION: Return to routine screening mammogram schedule for both breasts. Back on schedule for May 2022. Manage patient on a clinical basis.
== END | disposition home or self-care (01) ==
LOC: RADMAMWWP 09:32
PROVIDERS: ATTEND Obstetrics & Gynecology
DX: N64.52 Nipple discharge (principal)
CPT/HCPCS: 77065; G0279; 77061

== ENCOUNTER 2021-12-14 12:14 | Emergency (ER) | payer MEDICARE ==
[2021-12-14 12:19] VITALS: TEMP 98.3
[2021-12-14 13:05] LABS: Appearance,Urine Cloudy (Clear); Bacteria,Urine Many /hpf; Bilirubin,Urine Negative (Negative); Blood,Urine Moderate (Negative); Color,Urine Light Yellow; Glucose,Urine (UA) Negative (Negative); Ketones,Urine Negative (Negative); Leukocyte Esterase,Urine Large (Negative); Mucus,Urine Rare /hpf; Nitrite,Urine Negative (Negative); PH, Urine 5.5 (5.0-8.0); Protein,Urine Negative (Negative); RBC,Urine 4 /hpf (0-5); Specific Gravity,Urine 1.007 (1.001-1.035); Squamous Epithelial Cell,Urine <1 /hpf (0-4); Urobilinogen,Urine <2.0 mg/dL (<2.0); WBC,Urine 150 /hpf (0-5)
[2021-12-14] MEDS ORDERED: cefTRIAXone IN SWFI 1,000 MG/10 ML SYRINGE IVP STA (13:25)
[2021-12-14] MEDS ORDERED: SODIUM CHLORIDE 0.9% 500 ML 500 ML IV ONE (13:27)
--- NOTE | 2021-12-14 13:27 | ED ---
Female Urogenital HPI - General Chief complaint: Urogenital Stated complaint: female , blood in urine Time Seen by Provider: 12/14/21 12:21 Source: patient, RN notes reviewed, old records reviewed Mode of arrival: ambulatory Limitations: no limitations - History of Present Illness Initial comments: 70-year-old female presenting with flank pain, dysuria. Patient has had right- sided flank pain for the past one week. She has a remote history of kidney surgery and previous stenting. She's had increased urinary frequency and pressure with urinating. She's had multiple doses of antibiotics over the past month including Keflex and amoxicillin. She's had previous UTI in the past. She passed some which she believes is stone prior to arrival. This was associated with significant pain. She had a fever measured today at 101. - Related Data Home Medications Medication Instructions Recorded Confirmed Levothyroxine Sodium [Synthroid] 112 mcg PO DAILY 12/03/15 06/02/21 hydroCHLOROthiazide [Hydrodiuril] 25 mg PO DAILY 12/03/15 06/02/21 Acetaminophen [Tylenol Extra 1,000 mg PO BID PRN 05/24/19 06/02/21 Strength] Aspirin 81 mg PO DAILY 04/21/21 06/02/21 Montelukast [Singulair] 10 mg PO HS PRN 04/21/21 06/02/21 Multivit-Min/FA/Lycopen/Lutein 1 each PO DAILY 04/21/21 06/02/21 [Centrum Silver Tablet] Pantoprazole [Protonix] 40 mg PO DAILY 04/21/21 06/02/21 Solifenacin Succinate 20 mg PO DAILY 04/21/21 06/02/21 Previous Rx's Medication Instructions Recorded Cephalexin [Keflex] 500 mg PO TID 10 Days #30 cap 12/14/21 Allergies Allergy/AdvReac Type Severity Reaction Status Date / Time codeine Allergy Rash/Hives Verified 12/14/21 12:19 hydrocodone [From [place]] Allergy Rash/Hives Verified 12/14/21 12:19 Iodinated Contrast Media Allergy Rash/Hives Verified 12/14/21 12:19 Iodine and Iodide Containing Allergy Rash/Hives Verified 12/14/21 12:19 Produc sulfamethoxazole Allergy Rash/Hives Verified 12/14/21 12:19 [From Bactrim] trimethoprim [From Bactrim] Allergy Rash/Hives Verified 12/14/21 12:19 Review of Systems ROS Statement: Those systems with pertinent positive or pertinent negative responses have been documented in the HPI. ROS Other: All systems not noted in ROS Statement are negative. Past Medical History Past Medical History: GERD/Reflux, Hypertension, Musculoskeletal Disorder, Thyroid Disorder Additional Past Medical History / Comment(s): Hypothyroidism. Seasonal allergies, osteopenia and degenerative disc disease. Incontinent of urine on occasion. 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 History of Any Multi-Drug Resistant Organisms: None Reported Past Surgical History: Back Surgery, Bladder Surgery, Breast Surgery, Cholecystectomy, Hernia Repair, Hysterectomy, Orthopedic Surgery Additional Past Surgical History / Comment(s): HIATAL HERNIA REPAIR, KIDNEY SURGERY, CERVICAL FUSION, RIGHT ELBOW SURGERY, Colonoscopy, Vaginal hysterectomy 1983 and BSO in 2005, left breast biopsy. Upper endoscopy (EGD) 2021. Past Anesthesia/Blood Transfusion Reactions: No Reported Reaction Past Psychological History: No Psychological Hx Reported Smoking Status: Former smoker Past Alcohol Use History: Occasional Past Drug Use History: None Reported - Past Family History Sister(s) Family Medical History: Deep Vein Thrombosis (DVT) Additional Family Medical History / Comment(s): . Daughter(s) Family Medical History: Cancer Additional Family Medical History / Comment(s): LUNG CANCER. Father Family Medical History: Cancer Additional Family Medical History / Comment(s): Renal cancer. Brother(s) Family Medical History: Diabetes Mellitus General Exam Limitations: no limitations General appearance: alert, in no apparent distress Head exam: Present: atraumatic, normocephalic Eye exam: Present: normal appearance, PERRL ENT exam: Present: normal exam Neck exam: Present: normal inspection. Absent: tenderness Respiratory exam: Present: normal lung sounds bilaterally. Absent: respiratory distress, wheezes Cardiovascular Exam: Present: regular rate, normal rhythm GI/Abdominal exam: Present: soft. Absent: distended, tenderness, guarding Extremities exam: Present: normal inspection, normal capillary refill. Absent: pedal edema, calf tenderness Back exam: Present: CVA tenderness (R) Neurological exam: Present: alert, oriented X3, CN II-XII intact. Absent: motor sensory deficit Psychiatric exam: Present: normal affect, normal mood Skin exam: Present: warm, dry, intact. Absent: cyanosis, diaphoretic Course Vital Signs 12/14/21 12:17 Temperature 98.3 F Pulse Rate 81 Respiratory 18 Rate Blood Pressure 177/74 O2 Sat by Pulse 97 Oximetry Medical Decision Making - Medical Decision Making 70-year-old female presenting for evaluation of dysuria, urinary frequency and flank pain. Workup is initiated, urinalysis is consistent with UTI, many bacteria and elevated white cells in the urine. CT showing a hydronephrosis on the right which is similar to prior without obstructing calculus. Normal white blood cell count, normal kidney function, negative lactic acid. Patient's given a dose of IV antibiotics in the emergency department. She should follow-up closely with urology given the ongoing nature of her symptoms. She will be started on Keflex and urine culture is pending. - Lab Data Result diagrams: 12/14/21 13:33 12/14/21 13:33 Lab Results 12/14/21 12/14/21 12/14/21 Range/Units 12:33 13:33 13:33 WBC 10.3 (3.8-10.6) k/uL RBC 4.76 (3.80-5.40) m/uL Hgb 14.3 (11.4-16.0) gm/dL Hct 43.2 (34.0-46.0) % MCV 90.8 (80.0-100.0) fL MCH 30.0 (25.0-35.0) pg MCHC 33.1 (31.0-37.0) g/dL RDW 12.9 (11.5-15.5) % Plt Count 212 (150-450) k/uL MPV 7.8 Neutrophils % 77 % Lymphocytes % 15 % Monocytes % 5 % Eosinophils % 1 % Basophils % 0 % Neutrophils # 7.9 H (1.3-7.7) k/uL Lymphocytes # 1.5 (1.0-4.8) k/uL Monocytes # 0.5 (0-1.0) k/uL Eosinophils # 0.1 (0-0.7) k/uL Basophils # 0.1 (0-0.2) k/uL Sodium 139 (137-145) mmol/L Potassium 3.6 (3.5-5.1) mmol/L Chloride 102 (98-107) mmol/L Carbon Dioxide 28 (22-30) mmol/L Anion Gap 9 mmol/L BUN 18 H (7-17) mg/dL Creatinine 0.79 (0.52-1.04) mg/dL Est GFR (CKD-EPI)AfAm 89 (>60 ml/min/1.73 sqM) Est GFR (CKD-EPI)NonAf 77 (>60 ml/min/1.73 sqM) Glucose 85 (74-99) mg/dL Plasma Lactic Acid Kj (0.7-2.0) mmol/L Calcium 8.5 (8.4-10.2) mg/dL Total Bilirubin 0.3 (0.2-1.3) mg/dL AST 21 (14-36) U/L ALT 18 (4-34) U/L Alkaline Phosphatase 89 (38-126) U/L Total Protein 6.1 L (6.3-8.2) g/dL Albumin 3.9 (3.5-5.0) g/dL Urine Color Light Yellow Urine Appearance Cloudy H (Clear) Urine pH 5.5 (5.0-8.0) Ur Specific [place] 1.007 (1.001-1.035) Urine Protein Negative (Negative) Urine Glucose (UA) Negative (Negative) Urine Ketones Negative (Negative) Urine Blood Moderate H (Negative) Urine Nitrite Negative (Negative) Urine Bilirubin Negative (Negative) Urine Urobilinogen <2.0 (<2.0) mg/dL Ur Leukocyte Esterase Large H (Negative) Urine RBC 4 (0-5) /hpf Urine WBC 150 H (0-5) /hpf Urine WBC Clumps Few H (None) /hpf Ur Squamous Epith Cells <1 (0-4) /hpf Urine Bacteria Many H (None) /hpf Urine Mucus Rare H (None) /hpf 12/14/21 Range/Units 13:33 WBC (3.8-10.6) k/uL RBC (3.80-5.40) m/uL Hgb (11.4-16.0) gm/dL Hct (34.0-46.0) % MCV (80.0-100.0) fL MCH (25.0-35.0) pg MCHC (31.0-37.0) g/dL RDW (11.5-15.5) % Plt Count (150-450) k/uL MPV Neutrophils % % Lymphocytes % % Monocytes % % Eosinophils % % Basophils % % Neutrophils # (1.3-7.7) k/uL Lymphocytes # (1.0-4.8) k/uL Monocytes # (0-1.0) k/uL Eosinophils # (0-0.7) k/uL Basophils # (0-0.2) k/uL Sodium (137-145) mmol/L Potassium (3.5-5.1) mmol/L Chloride (98-107) mmol/L Carbon Dioxide (22-30) mmol/L Anion Gap mmol/L BUN (7-17) mg/dL Creatinine (0.52-1.04) mg/dL Est GFR (CKD-EPI)AfAm (>60 ml/min/1.73 sqM) Est GFR (CKD-EPI)NonAf (>60 ml/min/1.73 sqM) Glucose (74-99) mg/dL Plasma Lactic Acid Kj 0.9 (0.7-2.0) mmol/L Calcium (8.4-10.2) mg/dL Total Bilirubin (0.2-1.3) mg/dL AST (14-36) U/L ALT (4-34) U/L Alkaline Phosphatase (38-126) U/L Total Protein (6.3-8.2) g/dL Albumin (3.5-5.0) g/dL Urine Color Urine Appearance (Clear) Urine pH (5.0-8.0) Ur Specific [place] (1.001-1.035) Urine Protein (Negative) Urine Glucose (UA) (Negative) Urine Ketones (Negative) Urine Blood (Negative) Urine Nitrite (Negative) Urine Bilirubin (Negative) Urine Urobilinogen (<2.0) mg/dL Ur Leukocyte Esterase (Negative) Urine RBC (0-5) /hpf Urine WBC (0-5) /hpf Urine WBC Clumps (None) /hpf Ur Squamous Epith Cells (0-4) /hpf Urine Bacteria (None) /hpf Urine Mucus (None) /hpf Disposition Clinical Impression: Urinary tract infection, Hydronephrosis Disposition: HOME SELF-CARE Condition: Good Instructions (If sedation given, give patient instructions): Urinary Tract Infection in Women (ED), Hydronephrosis (ED) Prescriptions: Cephalexin [Keflex] 500 mg PO TID 10 Days #30 cap Is patient prescribed a controlled substance at d/c from ED?: No Referrals: Emmanuelle Mcintosh III, MD [Primary Care Provider] - 1-2 days Israel Ortiz MD [STAFF PHYSICIAN] - 1-2 days Time of Disposition: 14:21
--- NOTE | 2021-12-14 13:32 | CT ---
EXAMINATION TYPE: CT abdomen pelvis wo con DATE OF EXAM: 12/14/2021 COMPARISON: 02/09/2021 HISTORY: Pressure while urinating CT DLP: 700 mGycm Examination of the solid and hollow viscera is limited given the lack of contrast. FINDINGS: LUNG BASES: No evidence for nodule. No evidence for infiltrate. LIVER/GB: The gallbladder is unremarkable. No space-occupying hepatic lesion. PANCREAS: No pancreatic mass identified. No inflammatory process seen. SPLEEN: No evidence for splenomegaly. No intrasplenic lesions seen. ADRENALS: No adrenal nodules identified. No evidence for thickening. KIDNEYS: Moderate urinary bladder wall thickening compatible with underlying cystitis. There is mild fullness of the right renal collecting system. No obstructing calculi are seen. No renal masses are e vident. BOWEL: Appendix has a normal appearance. No evidence of bowel obstruction. No inflammatory process. Lymph nodes: No evidence for adenopathy greater than 1 cm. Abdominal aorta: Atheromatous changes seen. No evidence for aneurysm. Genital organs: No significant abnormality. Other: Small fat-containing anterior abdominal wall hernia. IMPRESSION: 1.Moderate urinary bladder wall thickening compatible with underlying cystitis. 2. Mild fullness right renal collecting system essentially unchanged from prior examination. No evide nce for obstructing calculus.
[2021-12-14 14:03] LABS: Basophils # (A) 0.1 k/uL (0-0.2); Basophils % (A) 0 %; Eosinophils # (A) 0.1 k/uL (0-0.7); Eosinophils % (A) 1 %; HCT 43.2 % (34.0-46.0); HGB 14.3 gm/dL (11.4-16.0); Lymphocytes # (A) 1.5 k/uL (1.0-4.8); Lymphocytes % (A) 15 %; MCHC 33.1 g/dL (31.0-37.0); MCV 90.8 fL (80.0-100.0); Mean Platelet Volume 7.8; Monocytes # (A) 0.5 k/uL (0-1.0); Monocytes % (A) 5 %; Neutrophils # (A) 7.9 k/uL (1.3-7.7); Neutrophils % (A) 77 %; Platelet Count 212 k/uL (150-450); RBC 4.76 m/uL (3.80-5.40); RDW 12.9 % (11.5-15.5); WBC 10.3 k/uL (3.8-10.6)
[2021-12-14 14:17] LABS: Albumin 3.9 g/dL (3.5-5.0); Calcium 8.5 mg/dL (8.4-10.2); Potassium 3.6 mmol/L (3.5-5.1); Total Bilirubin 0.3 mg/dL (0.2-1.3); Total Protein 6.1 g/dL (6.3-8.2)
[2021-12-14 14:42] VITALS: BP 144/83; PULSE 66; RESP 29
== END 2021-12-14 14:44 | disposition home or self-care (01) ==
LOC: EC 12:14
DX: N39.0 Urinary tract infection, site not specified (principal); N13.2 Hydronephrosis with renal and ureteral calculous obstruction; D72.829 Elevated white blood cell count, unspecified; I10 Essential (primary) hypertension; E03.9 Hypothyroidism, unspecified; K21.9 Gastro-esophageal reflux disease without esophagitis; Z87.891 Personal history of nicotine dependence; Z88.5 Allergy status to narcotic agent; Z88.2 Allergy status to sulfonamides; Z91.041 Radiographic dye allergy status; Z79.899 Other long term (current) drug therapy; Z79.890 Hormone replacement therapy; Z79.82 Long term (current) use of aspirin
CPT/HCPCS: 36415; 80053; 83605; 85025; 81001; 87040; 87086; 74176; 99284; 96374; J0696

== ENCOUNTER → 2022-12-03 | Outpatient (CLI) | payer MEDICARE, OTHER ==
--- NOTE | 2022-12-03 16:24 | MR ---
EXAMINATION TYPE: MR lumbar spine wo con DATE OF EXAM: 12/03/2022 COMPARISON: None HISTORY: Low back pain and abnormal gait pain on right CONTRAST: 0 mL intravenous Gadavist. TECHNIQUE: Multiplanar, multisequence images of the lumbar spine were acquired. FINDINGS: Cord terminates at the L1 level. Pedicle screws are present L5 and S1. L5-S1: No focal disc herniation is evident. Some disc bulge and in the left paracentral region has an terior thecal sac contact without compression. This does have contact with the exiting left S1 nerve root. Correlate with radicular symptoms. No spinal canal stenosis. No foraminal stenosis. L4-L5: No significant disc bulge or disc herniation. No spinal canal stenosis. No foraminal stenosi s. There is some facet hypertrophy is some mild posterior lateral thecal sac impression. L3-L4: Mild disc bulges anterior thecal sac contact. No AP spinal canal stenosis or neural foraminal stenosis is present No spinal canal stenosis. No foraminal stenosis. . L2-L3: No significant disc bulge or disc herniation. No spinal canal stenosis. No foraminal stenosi s. . L1-L2: No significant disc bulge or disc herniation. No spinal canal stenosis. No foraminal stenosi s. . T12-L1: Some mild right paracentral disc bulge is present with minimal anterior thecal sac compressio n. No cord contact or spinal canal stenosis present. Neural foramen are patent. No spinal canal sten osis. No foraminal stenosis. . IMPRESSION: 1. Postsurgical changes L5-S1. 2. No stenosis evident. 3. Mild disc bulging and left paracentral L5-S1 does have contact with the exiting left S1 nerve root . Correlate with radicular symptoms.
== END | disposition home or self-care (01) ==
LOC: RADMRIMAIN 13:16
PROVIDERS: ATTEND Orthopaedic Surgery Orthopaedic Surgery of the Spine
DX: M51.16 Intervertebral disc disorders with radiculopathy, lumbar region (principal); M62.830 Muscle spasm of back; M47.26 Other spondylosis with radiculopathy, lumbar region; M51.17 Intervertebral disc disorders with radiculopathy, lumbosacral region; R26.9 Unspecified abnormalities of gait and mobility; Z98.1 Arthrodesis status
CPT/HCPCS: 72148

== ENCOUNTER 2023-03-18 06:19 | Day surgery (SDC) | payer MEDICARE, OTHER ==
[2023-03-16 11:06] VITALS: BMI 32.9
[2023-03-18 07:09] VITALS: TEMP 97.6
[2023-03-18] MEDS ORDERED: LACTATED RINGERS 1,000 ML IV ONE (07:21)
[2023-03-18] MEDS ORDERED: LIDOCAINE 1% INJ 10MG/ML (20 ML MDV) ONE (07:23)
[2023-03-18] MEDS ORDERED: PROPOFOL 10 MG/ML 20 ML VIAL IV ONE (07:23)
--- NOTE | 2023-03-18 07:51 | P.PCN ---
Date of Procedure: 03/18/23 Procedure(s) Performed: Brief history: Patient is a pleasant 72-year-old white female scheduled for an elective upper endoscopy as well as colonoscopy as a part of evaluation ofGERD/intermittent right upper quadrant abdominal pain and prior history of colon polyps. Procedure performed: EsophagogastroduodenoscopyWith biopsy Colonoscopy with biopsy Preoperative diagnosis: GERD/intermittent right upper quadrant abdominal pain History of colon polyps Anesthesia: MAC Procedure: After informed consent was obtained from the patient was brought into the endoscopy unit and IV sedation was administered by anesthesia under continuous monitoring. Initially upper endoscopy was done. The Olympus GF 160 video endoscope was inserted inserted into the mouth and esophagus intubated without any difficulty and was gradually advanced into the stomach and duodenum and carefully examined. The bulb and second part of the duodenum appeared normal. The scope was then withdrawn into the stomach adequately insufflated with air and upon careful examination the antrum mild gastritis and biopsies were done from this area. body, cardia and fundus appeared normal. The scope was then withdrawn into the esophagus. small hiatal hernia noted. The GE junction was located at 40 cm to the incisors. It appeared regular with no erythema erosions or ulcerations. Rest of the esophagus appeared normal. Patient tolerated the procedure well. At this time the patient continued to remain sedation. Initial digital rectal examination was normal. Olympus CF 160 video colonoscope was then inserted into the rectum and gradually advanced to the cecum without any difficulty. Careful examination was performed as the scope was gradually being withdrawn. The prep was excellent. The cecum, appeared normal. In the ascending colon there was a 3 mm polyp that was removed by cold biopsy. In the descending colon there was a 4 mm polyp removed by cold biopsy and the sigmoid colon there was a 3 mm polyp removed by cold biopsy. Rest of the descending colon, sigmoid colon and rectum appeared normal.moderate left-sided diverticulosis seen. The Retroflexion was performed in the rectum and no lesions were noted. Patient tolerated the procedure well. Impression: 1. Upper endoscopy revealed mild antral gastritis and a small hiatal hernia 2. Colonoscopy revealed 3 mm ascending colon polyp, 4 mm descending colon polyp and a 3 mm sigmoid polyp all removed by cold biopsy and Recommendations: Findings of this examination were discussed with the patient as well jumana family. She was advised to follow with the biopsy results. If the biopsy results adenoma she can have a repeat colonoscopy in 5 years.continue with omeprazole 20 mg daily and follow antireflux measures.
[2023-03-18 08:31] VITALS: BP 158/83; PULSE 64; RESP 18
== END 2023-03-18 08:27 | disposition home or self-care (01) ==
LOC: ORWHC2ENDO 06:19
PROVIDERS: ATTEND Internal Medicine Gastroenterology
DX: Z12.11 Encounter for screening for malignant neoplasm of colon (principal); K29.50 Unspecified chronic gastritis without bleeding; K31.89 Other diseases of stomach and duodenum; K44.9 Diaphragmatic hernia without obstruction or gangrene; D12.0 Benign neoplasm of cecum; D12.2 Benign neoplasm of ascending colon; D12.4 Benign neoplasm of descending colon; K57.30 Diverticulosis of large intestine without perforation or abscess without bleeding; K21.9 Gastro-esophageal reflux disease without esophagitis; I10 Essential (primary) hypertension; E07.9 Disorder of thyroid, unspecified; Z79.890 Hormone replacement therapy; Z79.899 Other long term (current) drug therapy; Z86.010 Personal history of colon polyps; Z90.710 Acquired absence of both cervix and uterus; Z98.890 Other specified postprocedural states; Z88.5 Allergy status to narcotic agent; Z88.2 Allergy status to sulfonamides; Z91.041 Radiographic dye allergy status
CPT/HCPCS: 88305; 45380; 43239; J2001; J2704

== ENCOUNTER → 2023-07-06 | Outpatient (CLI) | payer MEDICARE, OTHER ==
--- NOTE | 2023-07-06 08:59 | CA ---
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 67 - 155 / 56 - 104 cm??? LV Systolic Volume MOD BP 53.0 cm??? 22 - 58 / 19 - 49 cm??? LV Ejection Fraction MOD BP 55.9 % >= 55 % LV Cardiac Index MOD BP 1984.6 cm???/min???m??? LV Diastolic Volume MOD 4C 118.4 cm??? LV Systolic Volume MOD 4C 57.7 cm??? LV Ejection Fraction MOD 4C 51.2 % LV Cardiac Index MOD 4C 1796.3 cm???/min???m??? LV Diastolic Length 4C 8.4 cm LV Systolic Length 4C 6.9 cm LV Diastolic Volume MOD 2C 115.4 cm??? LV Systolic Volume MOD 2C 44.8 cm??? LV Ejection Fraction MOD 2C 61.1 % LV Cardiac Index MOD 2C 2089.3 cm???/min???m??? LV Diastolic Length 2C 8.9 cm LV Systolic Length 2C 7.5 cm LA Volume 56.0 cm??? 18 - 58 / 22 - 52 cm??? LA Volume Index 28.6 cm???/m??? 16 - 28 cm???/m??? Ascending Aorta Diameter 3.0 cm DOPPLER AV Peak Velocity 179.4 cm/s AV Peak Gradient 12.9 mmHg AV Mean Velocity 103.4 cm/s AV Mean Gradient 5.1 mmHg AV Velocity Time Integral 36.3 cm LVOT Peak Velocity 97.7 cm/s LVOT Peak Gradient 3.8 mmHg LVOT Velocity Time Integral 23.6 cm LVOT Stroke Volume 80.9 cm??? LVOT Stroke Volume Index 43.6 ml/m??? LVOT Cardiac Index 2395.9 cm???/min???m??? AV Area Cont Eq vti 2.2 cm??? AV Area Cont Eq pk 1.9 cm??? MV Area PHT 3.2 cm??? Mitral E Point Velocity 71.8 cm/s Mitral A Point Velocity 93.9 cm/s Mitral E to A Ratio 0.8 MV Deceleration Time 239.0 ms TR Peak Velocity 270.7 cm/s TR Peak Gradient 29.3 mmHg Right Ventricular Systolic Press 34.3 mmHg PV Peak Velocity 134.4 cm/s PV Peak Gradient 7.2 mmHg FINDINGS Left Ventricle Left ventricular ejection fraction is estimated at 55-60 %. Moderately increased left ventricular diastolic volume. Mildly increased left ventricular systolic volume. No obvious regional wall motion abnormalities. Left ventricular wall thickness normal. Right Ventricle Mild right ventricular dilatation with normal function. Right ventricular systolic pressure within normal limits. Right Atrium Normal right atrial size. Left Atrium Mildly increased left atrial volume. Mitral Valve Structurally normal mitral valve. No evidence for mitral valve prolapse. No mitral stenosis. No mitral regurgitation. Aortic Valve Trileaflet aortic valve. No aortic valve stenosis or regurgitation. Tricuspid Valve Structurally normal tricuspid valve. No tricuspid stenosis. Trace tricuspid regurgitation. Pulmonic Valve Structurally normal pulmonic valve. No pulmonic stenosis. Trace pulmonic regurgitation. Pericardium No pericardial effusion. Aorta Normal size aortic root and proximal ascending aorta. CONCLUSIONS Normal LV systolic function Previewed by: Dr. Geo Benito MD (Electronically Signed) Final Date: 06 July 2023 08:58
--- NOTE | 2023-07-06 10:30 | CA ---
Exercise Stress Test Report Name: Izabeal Encarnacion Exam Date: 07/06/2023 08:55 Exam Location: [place] Stress Ht (in): 62 Wt (lb): 186 BSA: 1.85 Ordering Phys: Moises Butt DO Referring Phys: Sharon Smith Technologist: Joel Wei Age: 72 Gender: F : 1950 Procedure CPT: Indications: R06.02 SHORTNESS OF BREATH ICD-10 Codes: Patient History: Medications: Meds past 24 hrs: Pretest Chest Pain: STRESS TEST [place] Protocol Exercise Duration (min:sec): 03:[address] Depressions (mm): Angina Score: Diaz Score: Resting HR (bpm): 78 Peak HR (bpm): 120 Resting BP (mmHg): 150 / 75 Peak BP (mmHg): 209 / 85 MPHR: 148 Target HR: 126 % MPHR: 81 METS: 5.6 Total Dose: Peak Dose: Atropine: Double Product: 37899 BP Response: Stress Termination: DYSPNEA UNABLE TO CONTINUE Stress Symptoms: DIFFICULTY IN BREATHING Stress Summary: ECG ANALYSIS Resting ECG: Stress ECG: CONCLUSIONS Poor exercise tolerance Normal electrocardiogram stress testing Dr. Geo Benito MD (Electronically Signed) Final Date: 06 July 2023 10:29
== END | disposition home or self-care (01) ==
LOC: RADECHMAIN 07:59
PROVIDERS: ATTEND Family Medicine
DX: R06.02 Shortness of breath (principal); R53.83 Other fatigue
CPT/HCPCS: 93017; 93306

== ENCOUNTER → 2023-08-10 | Outpatient (CLI) | payer MEDICARE, OTHER | END | disposition home or self-care (01) | LOC: LABWHC1 14:27 | PROVIDERS: ATTEND Internal Medicine | DX: R06.00 Dyspnea, unspecified (principal); R06.02 Shortness of breath | CPT/HCPCS: 36415; 85379 ==

== ENCOUNTER → 2024-07-10 | Outpatient (CLI) | payer MEDICARE, OTHER ==
[2024-07-10 09:25] VITALS: BP 155/78; PULSE 63; RESP 16; TEMP 97.4
--- NOTE | 2024-07-10 09:29 | P.HPOB ---
History of Present Illness H&P Date: 07/10/24 Chief Complaint: The patient is here for her routine gynecologic exam and ma mmogram. This is a 73-year-old -0-1-4 with an LMP of 1983. The patient is status post vaginal hysterectomy and later BSO for benign reasons. She continues to have some hot flashes. This is not new. She is sexually active and has been using a lubricant which helps with vaginal dryness. Review of Systems The patient has lost 7 pounds over the last year. She has been trying to lose weight with diet and exercise. She denies respiratory, cardiac, or G.I. problems. Past Medical History Past Medical History: GERD/Reflux, Hypertension, Musculoskeletal Disorder, Thyroid Disorder Additional Past Medical History / Comment(s): Hypothyroidism. Seasonal allergies, osteopenia and degenerative disc disease. Incontinent of urine on occasion. 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 History of Any Multi-Drug Resistant Organisms: None Reported Past Surgical History: Back Surgery, Bladder Surgery, Breast Surgery, Cholecystectomy, Hernia Repair, Hysterectomy, Orthopedic Surgery Additional Past Surgical History / Comment(s): HIATAL HERNIA REPAIR, KIDNEY SURGERY, CERVICAL FUSION, RIGHT ELBOW SURGERY, Colonoscopy 2023(next after 5yr), Vaginal hysterectomy 1983 and BSO in 2005, left breast biopsy. Upper endoscopy (EGD) 2021. Past Anesthesia/Blood Transfusion Reactions: No Reported Reaction Past Psychological History: No Psychological Hx Reported (PHQ-2 questionaire was given and she scores 0. This is a negative screen for depression.) Smoking Status: Former smoker Past Alcohol Use History: None Reported Additional Past Alcohol Use History / Comment(s): STARTED SMOKING AT AGE 15, QUIT IN 1984, SMOKED 1PPD. Stopped drinking alcohol in 2023. Past Drug Use History: None Reported Additional History: She has been since 1999 and is sexually active. She is retired. - Past Family History Sister(s) Family Medical History: Deep Vein Thrombosis (DVT) Additional Family Medical History / Comment(s): . Daughter(s) Family Medical History: Cancer Additional Family Medical History / Comment(s): LUNG CANCER. Father Family Medical History: Cancer Additional Family Medical History / Comment(s): Renal cancer. Brother(s) Family Medical History: Diabetes Mellitus Medications and Allergies Home Medications Medication Instructions Recorded Confirmed Type Levothyroxine Sodium [Synthroid] 112 mcg PO DAILY 12/03/15 06/21/23 History Montelukast [Singulair] 10 mg PO DAILY 04/21/21 06/21/23 History Solifenacin Succinate 10 mg PO DAILY 04/21/21 06/21/23 History Omeprazole 40 mg PO DAILY 12/14/21 06/21/23 History Cholecalciferol (Vitd3)/Vit K2 1 each PO DAILY 07/10/24 07/10/24 History [Vit D3-Vit K2 125-100 Mcg Sfgl] Multivit-Min/Iron/Folic/Lutein 1 each PO DAILY 07/10/24 07/10/24 History [Centrum Silver Women Tablet] [place]-3/Dha/Epa/Fish Oil [Fish Oil 1 each PO DAILY 07/10/24 07/10/24 History EC 1,000 mg Softgel] traZODone HCL [Desyrel] 50 mg PO HS 07/10/24 07/10/24 History Allergies Allergy/AdvReac Type Severity Reaction Status Date / Time Iodinated Contrast Media Allergy Rash/Hives Verified 07/10/24 09:02 Iodine and Iodide Containing Allergy Rash/Hives Verified 07/10/24 09:02 Produc sulfamethoxazole Allergy Rash/Hives Verified 07/10/24 09:02 [From Bactrim] trimethoprim [From Bactrim] Allergy Rash/Hives Verified 07/10/24 09:02 codeine AdvReac Nausea & Verified 07/10/24 09:02 Vomiting hydrocodone [From [place]] AdvReac Nausea & Verified 07/10/24 09:02 Vomiting Exam Intake and Output 07/09/24 07/10/24 07/10/24 22:59 06:59 14:59 Other: Weight 81.647 kg Blood pressure 155/78, height 5 feet 2 inches, weight 180 pounds, BMI 32.9, temperature 97.4, pulse 63, pulse oximeter 97%. This is a well-developed well-nourished white female who is alert and oriented times 3 in no acute distress. HEENT: Within normal limits. NECK: Supple without mass or thyromegaly. CHEST AND LUNGS: Clear to auscultation. HEART: Regular rate and rhythm. BREASTS: Are without mass or discharge. The right nipple is inverted and she states this has been inverted for many years. The left nipple is not inverted. AXILLARY EXAM: Negative for adenopathy. BACK: Negative for CVA tenderness. ABDOMEN: Soft, nontender, without palpable masses. PELVIC EXAM: External genitalia appears normal with mild to moderate atrophy. Vagina appears normal with mild to moderate atrophy. There is no evidence of prolapse. Bimanual examination is negative for mass or tenderness. RECTAL EXAM: Rectovaginal exam is negative for mass or tenderness and is negative for occult blood. EXTREMITIES: Nontender. IMPRESSION: 1. 73-year-old menopausal female status post vaginal hysterectomy with BSO for benign reasons, with normal gynecologic exam. 2. Continued vasomotor symptoms. 3. History of osteopenia. 4. Elevated blood pressure with history of chronic hypertension, but was taken off of her blood pressure medications by her PCP. PLAN: 1. Pap smears have been discontinued. 2. Self breast awareness was discussed with the patient. We have also discussed symptoms associated with inflammatory breast cancer. 3. Screening mammogram will be done today. 4. Osteoporosis prevention was discussed. I have stressed the importance of adequate calcium, vitamin D and regular exercise. Recommended amounts of calcium and vitamin D were also discussed. Density testing will be done today. 5. We have discussed her elevated blood pressure. I have recommended that she check her own blood pressure at home on a regular basis and follow-up with her PCP for blood pressure elevations. 6. She was advised to return in one year for her annual well woman exam.
--- NOTE | 2024-07-10 10:10 | MM ---
Reason for Exam: Screening (asymptomatic). Last screening mammogram was performed 12 month(s) ago. Patient History: Menarche at age 13. First Full-Term at age 15. Left ovary removed at age 53. Right ovary removed at age 53. Hysterectomy at age 31. Postmenopausal. Estrogen for 1 year, 2 months. Benign Excisional Biopsy on the left side. Benign Excisional Biopsy on the left side. Risk Values: Courtney 5 year model risk: 1.9%. NCI Lifetime model risk: 4.7%. Prior Study Comparison: 08/26/2021 Right Diagnostic Mammogram, [facility]. 06/15/2022 Bilateral MG 3D screening mammo w/cad, [facility]. 06/21/2023 Bilateral MG 3D screening mammo w/cad, [facility]. Tissue Density: The breasts are heterogeneously dense, which may obscure small masses. Findings: Analyzed By CAD. There is no suspicious group of microcalcifications or new suspicious mass in either breast. Benign-appearing calcifications. Overall Assessment: Benign, BI-RAD 2 Management: Screening Mammogram of both breasts in 1 year. . Patient should continue monthly self-breast exams. A clinical breast exam by your physician is recommended on an annual basis. This exam should not preclude additional follow-up of suspicious palpable abnormalities. Note on Courtney scores and lifetime risk: 1. A Courtney score greater than 3% is considered moderate risk. If this is the case, consider specialist referral to assess eligibility for a risk reducing agent. 2. If overall lifetime risk for the development of breast cancer is 20% or higher, the patient may qualify for future screening with alternating mammogram and breast MRI. [facility], , 07/10/2024 10:07 AM. Electronically signed and approved by: Jackson Powell M.D. Radiologis
--- NOTE | 2024-07-10 13:26 | BD ---
EXAMINATION TYPE: Axial Bone Density DATE OF EXAM: 07/10/2024 CLINICAL HISTORY: 73 years old Female. ICD-10 CODE: Z780 POST MAITE WITHOUT HRT , Additional History: Height: 60.7 Weight: 179 FRAX RISK QUESTIONS: Family History (Parent hip fracture): yes, mother 3. Menopause before 45: total hyst at 30 yrs , yes RISK FACTORS HISTORY OF: Surgery to Spine disc surg with hardware MEDICATIONS: Thyroid Medications: yes synthroid, for over 20 yrs vit d, and multivitamins, EXAM MEASUREMENTS: Bone mineral densitometry was performed using the [employer] System. Bone mineral density about the R hip (g/cm2): 0.841 Bone mineral density about the L hip (g/cm2): 0.871 T Score values are as follows: -----R Neck: -2.1 -----L Neck: -1.8 -----R Total: -1.3 -----L Total: -1.1 Z Score values are as follows: -----R Neck: -0.6 -----L Neck: -0.3 -----R Total: -0.1 -----L Total: 0.2 Bone mineral density has: Decreased -1.3% since study of: 06.15.2022 Bone mineral density about the L Wrist (g/cm2): 0.511 T Score values are as follows: -----Dist. R+U: *-0.8 -----Prox. R+U: -1.3 -----Radius total: -2.3 Z Score values are as follows: -----Dist. R+U: 1.4 -----Prox. R+U: 0.8 -----Radius total: -0.2 Bone mineral density has: Decreased -3.3% since study of: 06.15.2022 FRAX%s: The graph provided illustrates a 21.3% chance for a major osteoporotic fx and a 10.3% chance for the hips probability for fx in 10 years time. IMPRESSION: Osteopenia (T Score between -2.5 and -1). There is slightly increased risk of fracture and the patient may be considered for treatment. Re-Screen 2-5 years. NOTE: T-SCORE=SD OF THE YOUNG ADULT MEAN. [facility], , 07/10/2024 1:23 PM
--- NOTE | 2024-07-11 11:13 | P.PN ---
Progress Note - Text Progress Note Date: 07/11/24 OUTPATIENT FOLLOW-UP NOTE TEST(S)/RESULTS: Test results from 06/12/2024 include benign mammogram and bone density test showing osteopenia METHOD OF NOTIFICATION: Patient was notified by phone on 07/11/2024 PATIENT COMMENTS: The patient states she is taking 1000 IU of vitamin D3 daily DIAGNOSIS: Benign mammogram and osteopenia. DISCUSSION: There was about a 1 to 3% decrease in her bone density results from her 202 bone density. I have stressed the importance of adequate calcium, vitamin D, and regular exercise. She will increase her vitamin D3 to 2000 IU daily. We will plan on repeating her bone density test in 2 years. PLAN: As above.
== END ==
LOC: WWCWWP 08:42
PROVIDERS: ATTEND Obstetrics & Gynecology
DX: Z12.31 Encounter for screening mammogram for malignant neoplasm of breast (principal); I10 Essential (primary) hypertension; M85.80 Other specified disorders of bone density and structure, unspecified site; N95.1 Menopausal and female climacteric states; Z87.891 Personal history of nicotine dependence; Z91.041 Radiographic dye allergy status; Z88.2 Allergy status to sulfonamides; Z88.1 Allergy status to other antibiotic agents; Z88.8 Allergy status to other drugs, medicaments and biological substances; Z88.5 Allergy status to narcotic agent; Z90.710 Acquired absence of both cervix and uterus; Z90.722 Acquired absence of ovaries, bilateral
CPT/HCPCS: 77063; 77067; 77080